=== PATIENT | female | born 1960 | race Caucasian/White ===

== ENCOUNTER 2019-06-15 12:24 | Outpatient (RCR) | payer OTHER, SELFPAY ==
[2019-06-05 14:31] LABS: Blood Urea Nitrogen 12 mg/dL (7-17); Carbon Dioxide 24 mmol/L (22-30); Chloride 102 mmol/L (98-107); Estimated Glomerular Filt Rate > 60; Glucose 106 mg/dL (65-105); Potassium 3.8 mmol/L (3.4-5.0); Sodium 139 mmol/L (137-145)
[2019-06-15 13:00] LABS: Blood Urea Nitrogen 14 mg/dL (7-17); Calcium 9.1 mg/dL (8.4-10.2); Carbon Dioxide 24 mmol/L (22-30); Chloride 103 mmol/L (98-107); Estimated Glomerular Filt Rate > 60; Glucose 103 mg/dL (65-105); Potassium 3.8 mmol/L (3.4-5.0); Sodium 139 mmol/L (137-145)
== END 2019-09-03 23:59 | disposition home or self-care (01) ==
LOC: ANHLAB 12:24
PROVIDERS: PCP Emergency Medicine
DX: I50.23 Acute on chronic systolic (congestive) heart failure (principal); Z98.890 Other specified postprocedural states; Z95.818 Presence of other cardiac implants and grafts
CPT/HCPCS: 36415; 80048

== ENCOUNTER 2020-01-02 01:00 | Inpatient (IN) | payer OTHER, SELFPAY ==
[2020-01-02] VITALS (26 sets, daily range): BP systolic 90–153; BP diastolic 45–107; PULSE 91–131; RESP 12–32; TEMP 35.9–37.1; O2SAT 9–99; BMI 33.5
--- NOTE | ~2020-01-02 | XR_ITS ---
EXAMINATION: XR chest 1V portable INDICATION: Shortness of breath and cough TECHNIQUE: Portable AP chest at 0126 hours COMPARISON: 09/05/2018 FINDINGS: A diffuse interstitial pattern is present. There is stable cardiomegaly. No pleural effusio n or pneumothorax is identified. There are surgical clips in the left axilla. IMPRESSION: 1. Cardiomegaly with pulmonary edema. Reviewed, dictated and finalized at location A.
--- NOTE | 2020-01-02 01:05 | ECG_ITS ---
Measurements Intervals [place] Rate: 136 P: 25 OH: 110 QRS: 61 QRSD: 123 T: 30 QT: 320 QTc: 483 Interpretive Statements SINUS OR ECTOPIC ATRIAL TACHYCARDIA WITH SHORT [place] INTERVAL RIGHT BUNDLE BRANCH BLOCK BASELINE ARTIFACT- I, II, III, AVR, AVL, AVF, V1-V2, V4-V6 ABNORMAL ECG Electronically Signed On 01-02-2020 7:05:07 CDT by Orlando Devi D.O.
[2020-01-02] MEDS: NITROGLYCERIN OINTMENT 1 INCH DOSE TRANSDERM (01:28)
[2020-01-02 01:37] LABS: Basophils Absolute Auto 0.1 K/mm3 (0.0-0.1); Basophils Percent Auto 0.7 % (0.2-1.2); Eosinophils Absolute Auto 0.1 K/mm3 (0-0.3); Eosinophils Percent Auto 0.7 % (0-4.4); Hemoglobin 12.8 g/dL (12.0-15.0); Immature Granulocyte Absolute 0.33 K/mm3 (0.00-0.031); Immature Granulocyte Percent A 2.4 % (0-0.5); Lymphocytes Absolute Auto 1.91 K/mm3 (0.9-3.2); Lymphocytes Percent Auto 13.9 % (18.3-44.2); Mean Corpuscular Hemoglobin 29.6 pg (26-34); Mean Corpuscular Volume 92.6 fl (80-100); Mean Platelet Volume 11.8 fl (7.4-10.4); Monocytes Absolute Auto 0.3 K/mm3 (0.1-0.6); Monocytes Percent Auto 2.3 % (2.6-8.5); Platelet Count Result 285 k/mm3 (150-375); Red Blood Count 4.32 M/mm3 (4.2-5.4); Red Cell Distribution Width 14.8 % (11.5-14.5); White Blood Count 13.7 K/mm3 (4.5-10.0)
[2020-01-02 02:07] LABS: INR 1.1; Prothrombin Time 13.9 Seconds (11.1-14.7)
[2020-01-02 02:08] LABS: Partial Thromboplastin Time 26.3 SECONDS (22.3-36.8)
[2020-01-02] MEDS: BUMETANIDE INJ 1 MG/4 ML VIAL IV PUSH ×3 (02:08→19:24)
[2020-01-02 02:15] LABS: Anion Gap 12 mmol/L (8-16); Blood Urea Nitrogen 18 mg/dL (7-17); Calcium 8.1 mg/dL (8.4-10.2); Carbon Dioxide 16 mmol/L (22-30); Chloride 111 mmol/L (98-107); Estimated CRCL calculation 85 ml/min; Estimated Glomerular Filt Rate 57; Glucose 323 mg/dL (65-105); Potassium 3.6 mmol/L (3.4-5.0); Sodium 139 mmol/L (137-145)
--- NOTE | 2020-01-02 02:23 | ED.SOB ---
HPI - SOB/Dyspnea General Chief Complaint: Shortness of Breath/Dyspnea Stated Complaint: SOB Time Seen by Provider: 01/02/20 01:04 History of Present Illness HPI Narrative: Patient is a 59-year-old female who presents the ER with sudden onset shortness of breath. Patient had just sat down to watch some police videos on YouTube when she began to have an anxious feeling and shortness of breath. Patient cannot get comfortable. She is more short of breath if she lay down flat. Patient has history of heart disease as well as mitral clipping. She sees Dr. Gillis at [facility] for her cardiac care. Family reports patient has been under stress recently as a family ember yesterday from COVID-19 and they are going to have to plan the . No change in diet. No increased swelling in lower extremities. Related Data Home Medications Medication Instructions Recorded Confirmed alprazolam 01/02/20 amitriptyline 01/02/20 atorvastatin 01/02/20 bupropion HCl mg PO 01/02/20 carvedilol 01/02/20 citalopram mg 01/02/20 digoxin 01/02/20 docusate sodium [DOK] 100 mg PO DAILY 01/02/20 01/02/20 furosemide 40 mg PO BID 01/02/20 01/02/20 gabapentin 01/02/20 lisinopril 01/02/20 mirtazapine 30 mg PO HS 01/02/20 01/02/20 potassium chloride 40 meq PO BID 01/02/20 01/02/20 torsemide 20 mg PO BID 01/02/20 01/02/20 Allergies Allergy/AdvReac Type Severity Reaction Status Date / Time spironolactone Allergy Rash Verified 01/02/20 01:40 Review of Systems Review of Systems: All systems reviewed & are unremarkable except as noted in HPI and below Constitutional: Constitutional: Denies chills, Denies fever(s) and Denies weakness ENT: Denies nasal congestion and Denies sore throat Cardiovascular: Cardiovascular: Reports chest pain, Reports rapid heart rate and Denies radiating jaw, neck or arm pain Respiratory: Respiratory: Denies chest congestion, Denies cough and Reports dyspnea Gastrointestinal: Gastrointestinal: Denies nausea and Denies vomiting [facility] Past Medical History Medical History (Updated 01/02/20 @ 05:43 by Kaden Rodriguez MD) Coronary artery disease Hypercholesterolemia Hypertension Surgical History Surgical History (Updated 01/02/20 @ 05:36 by Kaden Rodriguez MD) History of percutaneous coronary intervention S/P mitral valve clip implantation Family History Family History (Updated 01/02/20 @ 05:10 by Ana Maria Mccabe RN) Mother Cerebrovascular accident Father AICD (automatic cardioverter/defibrillator) present RADHA (obstructive sleep apnea) Chronic obstructive pulmonary disease Social History Social History Smoking packs per day: 0.5 Smoking cigarettes per day: 10.0 Years smoked: 22 Smoking pack-years: 11.00 Smoking status: Former smoker Tobacco type: cigarettes Second hand tobacco smoke exposure: No Smoking end date: 09/01/18 Alcohol intake: never Substance use: never Gender identity (if verbalized by the patient): Female Spiritual care concerns: No Exam Narrative: Exam Narrative: GENERAL: ill-appearing, well-nourished, and in moderate distress. HEAD: Normocephalic, atraumatic. ENT: Mucous membranes moist. CHEST: Moderate respiratory distress with coarse rales throughout.. HEART: Tachycardic and regular. Normal peripheral pulses. ABDOMEN: Soft, nontender, nondistended. EXTREMITIES: Normal range of motion. No edema. SKIN: Warm, dry, no rash. NEURO: Alert and oriented x3. PSYCH: Anxious Course Course Emergency Course: Feels markedly improved after BiPAP as well as Bumex and nitroglycerin paste. Nitropaste is been removed due to blood pressure lowering. Patient had brief episode of chest pain in the ER that was in the center of her chest that resolves when going from a laying to sitting position. Admit to hospitalist. Vital Signs Vital signs: Vital Signs Pulse Rate 131 H 01/02/20 01:22 Respiratory Rate 32 H 01/02/20 01:22 Pul
[2020-01-02 02:27] LABS: NT Pro B Type Natriuretic Pept 1540 PG/ML (5-100); Troponin I < 0.012 ng/mL (0.000-0.034)
--- NOTE | 2020-01-02 03:59 | PC.NURSE ---
report to karson
--- NOTE | 2020-01-02 05:06 | PC.NURSE ---
This patient, Alexandra Crawford, was admitted to IMU Room 214-01 at 0435 on 01/02/20. Patient/family oriented to hospital policies and general routines including ID bracelet, bed and alarms, visiting hours, pain management, procedures, bathroom and other care routines, personal items, smoking policy, room service/diet, and visiting hours. Valuables list has been completed. Information on how to activate the Rapid Response Team has been discussed. Patient/Family are encouraged to report perceived risks to care and to ask questions if they do not understand what they are told or what they should do.
--- NOTE | 2020-01-02 05:45 | PM.IMHP ---
H&P: HPI History of Present Illness Date/Time: 01/02/20 06:00 Chief complaint: Shortness of breath Narrative: Aleaxndra Crawford is a 59 year old female with a past medical history of cardiomyopathy and severe mitral valve regurgitation status post repair who presented to the ER due to shortness of breath. The patient had initially called EMS but EMS was unable to bring her to the ER due to her degree of anxiety. She was combative with EMS and climbed out of the ambulance numerous times. She was eventually brought to the ER by private vehicle.The patient arrived to the ER pale diaphoretic and unable to speak . She was on all fours. The patient reports that she has had increased lower extremity swelling for the last 2 or 3 weeks. She has noticed some mild increase in abdominal stent distension for a few weeks before that. She has noticed some intermittent short of breath with activity. Tonight she had worsening shortness of breath when she tried to lay down and go to sleep. She thought that it may be due to extra stress as her uncle recently of [place] and she wanted to arrange time to go to the . She did not have any exposure to her uncle or relatives that were exposed her uncle in recent weeks. She denies having any cough or congestion. she has not been having any fevers or chills. She has noticed that she has gained a few lb over the last couple of weeks. After she had arrived to the ER the patient began having left-sided chest pain that did not radiate. It was associated with increased diaphoresis and nausea. She reports that she has been trying to eat a low sodium diet. She waspatient was initially diagnosed with cardiomyopathy with the EF of 25% and severe mitral valve regurgitation back in August of 2018. she had a cardiac catheterization at that time performed by Dr. Powell. She was referred to [facility] and had valvular repair March 2019. She reported that initially she was on Lasix but the Lasix did not work for her. She has a better response to diuretic therapy with torosimide. she had also initially been treated with spironolactone but she developed a rash with spironolactone in this was discontinued. The patient does have a history of excessive daytime sleepiness. her fiance is told her that she stops breathing at night and will gasp for air. She has never had a sleep study. Review of Systems Review of Systems: Narrative: 12 systems were reviewed with pertinent positives and negatives per HPI. Except as documented in the HPI, all other systems were reviewed and are negative. [facility] Past Medical History Medical History (Updated 01/02/20 @ 08:13 by Marian Delatorre DO) Cancer of left breast 2013treated with radiation therapy Hypercholesterolemia Hypertension Kidney stones 2015 Nonischemic cardiomyopathy noted on trans esophageal echocardiogram August 2018 with severe mitral valve regurgitation EF of 25% Surgical History Surgical History (Updated 01/02/20 @ 08:06 by Marian Delatorre DO) History of cardiac catheterization with no significant coronary artery disease noted August 2018 S/P mitral valve clip implantation Status post left breast lumpectomy Family History Family History Mother Cerebrovascular accident Father AICD (automatic cardioverter/defibrillator) present RADHA (obstructive sleep apnea) Chronic obstructive pulmonary disease Social History Social History (Updated 01/02/20 @ 08:08 by Marian Delatorre DO) Social History: The patient lives with her fiance and her 24-year-old daughter who has Down syndrome. 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 She used to smoke a 3rd of a pack of cigarettes per day but quit smoking in August of 2018. She denies any alcohol use or illicit substance use. Smoking packs per day: 0.5 Smoking ciga
[2020-01-02 06:31] LABS: Troponin I 0.036 ng/mL (0.000-0.034)
[2020-01-02 08:16] LABS: Troponin I 0.033 ng/mL (0.000-0.034)
[2020-01-02] MEDS: ATORVASTATIN 40 MG TABLET PO (09:48)
[2020-01-02] MEDS: carvediloL 25 MG TABLET PO (09:48)
[2020-01-02] MEDS: buPROPion HCL XL (24 HR) 150 MG TABCR PO (09:48)
[2020-01-02] MEDS: GABAPENTIN 300 MG CAPSULE PO (09:49)
[2020-01-02] MEDS: DOCUSATE SODIUM 100 MG CAPSULE PO (09:49)
[2020-01-02] MEDS: DIGOXIN TAB 125 MCG TABLET PO (09:49)
[2020-01-02] MEDS: POTASSIUM CHLORIDE 10 MEQ TABLET.ER 40 MEQ PO ×2 (09:50→19:23)
[2020-01-02] MEDS: ENOXAPARIN 40 MG/0.4 ML SYRINGE SUB-Q (09:50)
--- NOTE | 2020-01-02 09:53 | PM.IMPN ---
Progress Note: A&P Assessment and Plan (1) Acute exacerbation of CHF (congestive heart failure): Qualifiers: Heart failure type: systolic Qualified Code(s): I50.23 - Acute on chronic systolic (congestive) heart failure Code(s): I50.9 - Heart failure, unspecified Status: Acute Assessment and Plan: Chest x-ray showed cardiomegaly with pulmonary edema. BNP was 1500. She was in respiratory distress on admission. she has been started on Bumex IV. Monitor renal function and urine output. Repeat echocardiogram has been ordered. (2) Acute respiratory failure: Qualifiers: Respiratory failure complication: hypoxia Qualified Code(s): J96.01 - Acute respiratory failure with hypoxia Code(s): J96.00 - Acute respiratory failure, unspecified whether with hypoxia or hypercapnia Status: Acute Assessment and Plan: Acute hypoxic respiratory failure related to acute CHF exacerbation. Patient was combative to EMS resulting in EMS transfer being canceled. Patient came by private car and was in tripod position on presentation. patient more comfortable on BiPAP at this time. Wean to nasal cannula today as tolerated. (3) Chest pain: Qualifiers: Chest pain type: unspecified Qualified Code(s): R07.9 - Chest pain, unspecified Code(s): R07.9 - Chest pain, unspecified Status: Acute Assessment and Plan: EKG showing no acute changes. Troponin slightly elevated at 0.036 but felt this is related to the CHF and not ischemia. Patient had a left heart catheterization August 2018 which showed no significant coronary disease. Cardiology consulted. (4) Daytime somnolence: Code(s): R40.0 - Somnolence Status: Acute Assessment and Plan: Patient has symptoms of sleep apnea. Plan for apnea link when patient is well. (5) Hyperglycemia: Code(s): R73.9 - Hyperglycemia, unspecified Status: Acute Assessment and Plan: Glucose on admission was 323. She has no history of diabetes. Will check hemoglobin A1c and a TSH. AccuCheks covering with sliding scale. Hypoglycemia protocol available as needed. (6) Hypertension: Code(s): I10 - Essential (primary) hypertension Status: Acute Assessment and Plan: Patient has a history of hypertension. Blood pressure elevated on admission due to her respiratory failure. Blood pressure since that time has become soft. Monitor closely on diuretics. Will place parameters on her medications. (7) Mitral regurgitation: Code(s): I34.0 - Nonrheumatic mitral (valve) insufficiency Status: Acute Assessment and Plan: Patient had severe mitral valve regurgitation requiring mitral valve clip. No echocardiogram since the surgery. Echocardiogram ordered today. (8) DVT prophylaxis: Code(s): Z29.9 - Encounter for prophylactic measures, unspecified Status: Acute Assessment and Plan: Lovenox Subjective Date/time seen: 01/02/20 09:53 Interval history: 59yo female with hx of CMP and severe MR status post valve repair here for respiratory distress. Patient was initially diagnosed with cardiomyopathy with the EF of 25% and severe mitral valve regurgitation back in August of 2018. She had a LHC at that time and then referred for valve repair. She is feeling better this morning. She adheres to a low-sodium diet. She states her shortness of breath began 1 day ago. Chest pain began also over the past day. She also developed nausea, vomiting and diarrhea. She has noted increasing pedal edema over the past week. Also noted abdominal distention over the past week as well. She does not check daily weights. She does not have diabetes. She has not been on steroids. No cough. Exam Narrative: Exam Narrative: AF 97.0 90/60 93 18 99% BiPAP Gen - Well-nourished well-developed female lying semi recumbent in bed with BiPAP i
[2020-01-02 11:05] LABS: Glucose Point of Care 155 (65-105)
[2020-01-02] MEDS: ACETAMINOPHEN 325 MG TABLET 650 MG PO (11:05)
--- NOTE | 2020-01-02 12:32 | PM.CNCAR ---
Assessment and Plan Assessment and plan (1) Acute exacerbation of CHF (congestive heart failure): Qualifiers: Heart failure type: systolic Qualified Code(s): I50.23 - Acute on chronic systolic (congestive) heart failure Code(s): I50.9 - Heart failure, unspecified Status: Acute Assessment and Plan: 59 y/o female with h/o Non ischemic cardiomyopathy diagnosed in August 2018 ([facility] with no significant CAD) and severe mitral valve regurgitation status post Laura-Clip at [facility] in Mar 2019 who presented with shortness of breath and acute resp failure She required BiPAP initially. now down to oxygen via nasal cannula BNP 1500. Chest Xray with marked pulmonary edema She is diuresing well with Bumex. Will continue current dose of 1 mg BID Her BP is borderline low 90s systolic. Will d/c Coreg and start low dose Metoprolol 25 daily. Will continue low dose Lisinopril as at home 5 mg daily Will repeat 2D echo to reassess her LV systolic function and assess valvular disease (2) Nonischemic cardiomyopathy: Code(s): I42.8 - Other cardiomyopathies Status: Acute Assessment and Plan: Likely due to underlying valvular disease. S/p Clip in Mar 2019. Repeat 2D echocardiogram (3) Acute respiratory failure: Qualifiers: Respiratory failure complication: hypoxia Qualified Code(s): J96.01 - Acute respiratory failure with hypoxia Code(s): J96.00 - Acute respiratory failure, unspecified whether with hypoxia or hypercapnia Status: Acute Assessment and Plan: required Bipap. better now. COntinue Bumex History of Present Illness History of Present Illness Consult date/time: 01/02/20 12:32 59 y/o female with h/o cardiomyopathy diagnosed in August 2018 ([facility] with no significant disease consistent with non ischemic cardiomyopathy) and severe mitral valve regurgitation status post Laura-Clip at [facility] in Mar 2019 who presented to the ER due to shortness of breath. She reports that she has been short of breath even since her Laura Clip procedure. She was initially on Lasix and was switched to Torsemide few months ago still with ongoing dyspnea. She repots worsening dyspnea for few weeks as well as lower ext edema and abdominal distention. Yesterday when she tried to lay down to sleep she developed acute onset of dyspnea with near feeling. It appears she had panic attack and climbed out of ambulance multiple times and eventually family brought her to hospital. She was placed on BiPAP and received IV lasix. She feels better now though not quite back to normal. She had episode of chest pain in ER. Had Nitro paste placed but that was taken off due borderline low BP. Most recent BP 94/60 Trop 0.01, 0.03,0.03 Chest X ray shows pulmonary edema EKG shows sinus tachycardia with artifact. tele monitor now shows sinus tachy at HR 100 she quit smoking in August 2018 . Reason For Visit: Shortness of breath Review of Systems Review of Systems: All systems reviewed & are unremarkable except as noted in HPI and below PMFSH Past Medical History Medical History (Updated 01/02/20 @ 12:49 by Shauna Combs MD) Cancer of left breast 2013treated with radiation therapy Hypercholesterolemia Hypertension Kidney stones 2015 Nonischemic cardiomyopathy noted on trans esophageal echocardiogram August 2018 with severe mitral valve regurgitation EF of 25% Surgical History Surgical History (Updated 01/02/20 @ 08:06 by Marian Delatorre DO) History of cardiac catheterization with no significant coronary artery disease noted August 2018 S/P mitral valve clip implantation Status post left breast lumpectomy Family History Family History Mother Cerebrovascular accident Father AICD (automatic cardioverter/defibrillator) present RADHA (obstructive sleep apnea) Chronic obstructive pulmonary disease
[2020-01-02 19:20] LABS: Glucose Point of Care 107 (65-105)
[2020-01-02] MEDS: AMITRIPTYLINE HCL 25 MG TABLET PO (20:00)
[2020-01-02] MEDS: lisinopriL 5 MG TABLET PO (20:00)
[2020-01-02] MEDS: CITALOPRAM HYDROBROMIDE 20 MG TABLET 40 MG PO (20:00)
[2020-01-02] MEDS: MIRTAZAPINE 30 MG TABLET PO (20:00)
[2020-01-03] VITALS (20 sets, daily range): BP systolic 95–122; BP diastolic 61–80; PULSE 79–103; RESP 16–20; TEMP 35.8–36.6; O2SAT 97–100
--- NOTE | 2020-01-03 | ECHO_ITS ---
Patient Info Name: Alexandra Crawford Age: 59 years : 1960 Gender: Female Ht: 63 in Wt: 188 lbs BSA: 1.98 m2 HR: 90 bpm BP: 108 / 75 mmHg Technical Quality: Good Exam Date: 01/03/2020 10:03 AM Exam Location: [facility] Pulmonary Patient Status: Inpatient Admit Date: 01/03/2020 Staff Ordering Physician: Marian Delatorre DO Chief Radiologic Technologist: Lynda Jalloh RDCS Attending Provider: Marian Delatorre DO Referring Physician: Nandini STRONG; Exam Type: CA echo doppler color flow Study Info Indications I50.9 - Heart failure, unspecified Complete two-dimensional, color flow and Doppler transthoracic echocardiogram is performed. Summary 1. Left ventricular systolic function is severely reduced, estimated at 15-20%. 2. There is moderate to severe mitral valve regurgitation. 3. There is mild to moderate mitral valve stenosis. 4. There is mild tricuspid valve regurgitation. 5. Moderate pulmonary hypertension, estimated pulmonary arterial systolic pressure is 47 mmHg. Left Ventricle Left ventricular systolic function is severely reduced, estimated at 15-20%. There is no increased left ventricular wall thickness. Left ventricular septal wall motion is normal. The left ventricular diastolic function is normal. Right Ventricle Right ventricular chamber dimension is normal. Right ventricular systolic function is normal. Left Atria Left atrial chamber dimension is mildly enlarged. Right Atria Right atrial chamber dimension is normal. Aortic Valve The aortic valve is trileaflet. There is no aortic valve sclerosis. There is no aortic valve stenosis. There is no aortic valve regurgitation. Pulmonic Valve The pulmonic valve is normal. There is no pulmonic valve stenosis. There is no pulmonic regurgitation. Mitral Valve There is mild to moderate mitral valve stenosis. There is moderate to severe mitral valve regurgitation. Mitral valve has significant thickening and restricted motion, with mitral valve clip. Tricuspid Valve The tricuspid valve leaflets are normal. There is no significant tricuspid valve stenosis. There is mild tricuspid valve regurgitation. Moderate pulmonary hypertension, estimated pulmonary arterial systolic pressure is 47 mmHg. Pericardium/Pleural The pericardium appears normal. There is no pericardial effusion. Inferior Vena Cava Normal inferior vena cava with >50% collapse upon inspiration consistent with normal right atrial pressure, 10 mmHg. Aorta The aortic root size at the sinus of Valsalva is normal. The prox ascending aorta size is normal. Left Ventricular Outflow Tract Name Value Normal LVOT 2D LVOT Diameter 2.0 cm LVOT Doppler LVOT Peak Gradient 5 mmHg LVOT Mean Gradient 2 mmHg LVOT VTI 15 cm LVOT VTI/AV VTI Ratio 0.8 LVOT Stroke Volume 47 ml LVOT CO 4.7 l/min LVOT CI 2.3 l/min/m2 Pulmonic Valve
[2020-01-03 05:49] LABS: Hematocrit 39.1 % (37.0-47.0); Hemoglobin 12.6 g/dL (12.0-15.0); Mean Corpuscular HGB Conc 32.2 g/dl (32-36); Mean Corpuscular Hemoglobin 29.9 pg (26-34); Mean Corpuscular Volume 92.7 fl (80-100); Mean Platelet Volume 12.4 fl (7.4-10.4); Platelet Count Result 248 k/mm3 (150-375); Red Blood Count 4.22 M/mm3 (4.2-5.4); White Blood Count 7.2 K/mm3 (4.5-10.0)
[2020-01-03 06:05] LABS: Alanine Aminotransferase 32 U/L (4-35); Albumin Level 4.1 g/dL (3.5-5.1); Alkaline Phosphatase 97 U/L (38-126); Anion Gap 6 mmol/L (8-16); Aspartate Amino Transferase 28 U/L (14-36); Bilirubin,Total 0.4 mg/dL (0.2-1.3); Blood Urea Nitrogen 16 mg/dL (7-17); Calcium 9.2 mg/dL (8.4-10.2); Carbon Dioxide 27 mmol/L (22-30); Chloride 108 mmol/L (98-107); Estimated CRCL calculation 61 ml/min; Estimated Glomerular Filt Rate > 60; Glucose 105 mg/dL (65-105); Hemoglobin A1C 5.5 % (<5.7); Magnesium 2.1 mg/dL (1.6-2.3); Potassium 4.1 mmol/L (3.4-5.0); Sodium 141 mmol/L (137-145)
[2020-01-03 07:38] LABS: Glucose Point of Care 96 (65-105)
[2020-01-03 07:58] LABS: Free T4 Free Thyroxine Reflex 0.72 ng/dL (0.78-2.19)
[2020-01-03 08:50] LABS: Digoxin < 0.4 ng/mL (0.8-2.0)
[2020-01-03] MEDS: ATORVASTATIN 40 MG TABLET PO (10:58)
[2020-01-03] MEDS: DIGOXIN TAB 125 MCG TABLET PO (10:58)
[2020-01-03] MEDS: GABAPENTIN 300 MG CAPSULE PO (10:58)
[2020-01-03] MEDS: DOCUSATE SODIUM 100 MG CAPSULE PO (10:58)
[2020-01-03] MEDS: METOPROLOL SUCCINATE EXT REL 25 MG TABCR PO (10:59)
[2020-01-03] MEDS: buPROPion HCL XL (24 HR) 150 MG TABCR PO (10:59)
[2020-01-03] MEDS: ENOXAPARIN 40 MG/0.4 ML SYRINGE SUB-Q (11:00)
[2020-01-03] MEDS: POTASSIUM CHLORIDE 10 MEQ TABLET.ER 40 MEQ PO ×2 (11:00→17:23)
[2020-01-03] MEDS: BUMETANIDE INJ 1 MG/4 ML VIAL IV PUSH ×2 (11:01→17:22)
[2020-01-03 11:53] LABS: Glucose Point of Care 98 (65-105)
[2020-01-03] MEDS: MORPHINE SULFATE 4 MG/ML INJ IV PUSH (13:13)
[2020-01-03] MEDS: ONDANSETRON INJ 4 MG/2 ML VIAL IV PUSH (13:18)
--- NOTE | 2020-01-03 13:21 | PC.NURSE ---
Pt experienced chest pain, notified Dr Patrick. Gave morphine with Zophran. Dr. Patrick examined patient. Patient chest pain subsided after morphine.
--- NOTE | 2020-01-03 13:29 | PM.PNCARD ---
Progress Note: A&P Assessment and Plan (1) Acute exacerbation of CHF (congestive heart failure): Qualifiers: Heart failure type: systolic Qualified Code(s): I50.23 - Acute on chronic systolic (congestive) heart failure Code(s): I50.9 - Heart failure, unspecified Status: Acute Assessment and Plan: 59 y/o female with h/o Non ischemic cardiomyopathy diagnosed in August 2018 ([facility] with no significant CAD) and severe mitral valve regurgitation status post Laura-Clip at [facility] in Mar 2019 who presented with shortness of breath and acute resp failure She required BiPAP initially. now down to oxygen via nasal cannula BNP 1500. Chest Xray with marked pulmonary edema She is diuresing well with Bumex. Will continue current dose of 1 mg BID Her BP is borderline low 90s systolic. Will d/c Coreg and start low dose Metoprolol 25 daily. Will continue low dose Lisinopril as at home 5 mg daily echocardiogram still showed severe left ventricular systolic dysfunction (2) Nonischemic cardiomyopathy: Code(s): I42.8 - Other cardiomyopathies Status: Acute Assessment and Plan: Likely due to underlying valvular disease. S/p Clip in Mar 2019. (3) Acute respiratory failure: Qualifiers: Respiratory failure complication: hypoxia Qualified Code(s): J96.01 - Acute respiratory failure with hypoxia Code(s): J96.00 - Acute respiratory failure, unspecified whether with hypoxia or hypercapnia Status: Acute Assessment and Plan: required Bipap. better now. COntinue Bumex (4) Paroxysmal atrial fibrillation: Code(s): I48.0 - Paroxysmal atrial fibrillation Status: Acute Assessment and Plan: she had few episodes of symptomatic atrial fibrillation with rapid ventricular response, will add amiodarone, continue with metoprolol and digoxin, will monitor her rhythm closely. Will consider anticoagulation with Coumadin if she has significant recurrence of that. Subjective Date/time seen: 01/03/20 13:29 she feels slightly better as far as shortness of breath, however she had episode of chest pain while I was at the bedside and subsequent after, during that time she went to atrial fibrillation with rapid ventricular response. Orthopnea is better, and leg swelling is better Exam Narrative: Exam Narrative: General: Appears somewhat anxious but in no distress ormocephalic atraumatic, no JVD, , pupils are equal and react Respiratory: crackles bilaterally, mild conversational dyspnea, Cardiovascular: mildly tachycardic, positive murmur, no JVD, trace lower ext edema Gastrointestinal: distended, nontender, positive bowel sounds, soft Skin: cool to touch, mildly diaphoretic, mild pallor Musculoskeletal:trace edema, no clubbing, no cyanosis Neurological: no gross deficits Psychiatric: appropriate mood and affect, pleasant and cooperative : deferred Hematologic/lymphatic: no petechiae, no bruising Objective Data Vital Signs Vital Signs: Vital Signs - 24 hr 01/02/20 14:00 01/02/20 16:00 01/02/20 18:00 Temperature 35.9 C L Pulse Rate 97 92 93 Respiratory Rate 12 Blood Pressure 94/45 L Pulse Oximetry 98 01/02/20 20:00 01/02/20 20:02 01/02/20 22:00 Temperature Pulse Rate 99 97 Respiratory Rate Blood Pressure Pulse Oximetry 98 01/02/20 23:53 01/03/20 00:00 01/03/20 02:00 Temperature 36.5 C Pulse Rate 104 H 89 97 Respiratory Rate 18 Blood Pressure 108/73 Pulse Oximetry 97 01/03/20 04:00 01/03/20 06:00 01/03/20 07:42 Temperature 36.5 C 35.8 C L Pulse Rate 98 90 103 H Respiratory Rate 18 16 Blood Pressure 108/75 98/63 L Pulse Oximetry 99 99 01/03/20 10:58 01/03/20 10:59 01/03/20 11:57 Temperature 35.9 C L Pulse Rate 100 103 H 79 Respiratory Rate 16 Blood Pressure 122/75 Pulse Oximetry 98 Intake/Output Intake/Output: Intake & Output 12/31/19 01/01/20 01/02/20 01/03/20
[2020-01-03 16:54] LABS: Glucose Point of Care 105 (65-105)
[2020-01-03] MEDS: AMIODARONE HCL 200 MG TABLET 400 MG PO (17:24)
--- NOTE | 2020-01-03 20:43 | PM.IMPN ---
Progress Note: A&P Assessment and Plan (1) Acute exacerbation of CHF (congestive heart failure): Qualifiers: Heart failure type: systolic Qualified Code(s): I50.23 - Acute on chronic systolic (congestive) heart failure Code(s): I50.9 - Heart failure, unspecified Status: Acute Assessment and Plan: Chest x-ray showed cardiomegaly with pulmonary edema. BNP was 1500. She was in respiratory distress on admission. She has been started on Bumex IV. Monitor renal function and urine output. Repeat echocardiogram has been ordered. (2) Acute respiratory failure: Qualifiers: Respiratory failure complication: hypoxia Qualified Code(s): J96.01 - Acute respiratory failure with hypoxia Code(s): J96.00 - Acute respiratory failure, unspecified whether with hypoxia or hypercapnia Status: Acute Assessment and Plan: Acute hypoxic respiratory failure related to acute CHF exacerbation. Patient was combative to EMS resulting in EMS transfer being canceled. Patient came by private car and was in tripod position on presentation. Patient treated with BiPAP and became much more comfortable. After diuresis, she was able to be weaned to nasal cannula. (3) Paroxysmal atrial fibrillation: Code(s): I48.0 - Paroxysmal atrial fibrillation Status: Acute Assessment and Plan: Patient having AFib with RVR. Cardiology aware and Amiodarone added. Continue with metoprolol and digoxin. HR stable. Consider anticoagulation. (4) Chest pain: Qualifiers: Chest pain type: unspecified Qualified Code(s): R07.9 - Chest pain, unspecified Code(s): R07.9 - Chest pain, unspecified Status: Acute Assessment and Plan: EKG showing no acute changes. Troponin slightly elevated at 0.036 but felt this is related to the CHF and not ischemia. Patient had a left heart catheterization August 2018 which showed no significant coronary disease. Cardiology following. (5) Nonischemic cardiomyopathy: Code(s): I42.8 - Other cardiomyopathies Status: Acute Assessment and Plan: As above. (6) Daytime somnolence: Code(s): R40.0 - Somnolence Status: Acute Assessment and Plan: Patient has symptoms of sleep apnea. Plan for apnea link when patient is well. (7) Hyperglycemia: Code(s): R73.9 - Hyperglycemia, unspecified Status: Acute Assessment and Plan: Glucose on admission was 323. She has no history of diabetes. A1c 5.5. TSH 5.7. Glucose well controlled. Continue AccuCheks covering with sliding scale. Hypoglycemia protocol available as needed. (8) Hypertension: Code(s): I10 - Essential (primary) hypertension Status: Acute Assessment and Plan: Patient has a history of hypertension. Blood pressure elevated on admission due to her respiratory failure. Blood pressure since that time has become soft. Monitor closely on diuretics. (9) Mitral regurgitation: Code(s): I34.0 - Nonrheumatic mitral (valve) insufficiency Status: Acute Assessment and Plan: Patient had severe mitral valve regurgitation requiring mitral valve clip. Echo shoiwng EF 15-20% and moderate to severe MR. Cardiology here has already contacted [facility] and she has been accepted in transfer. (10) DVT prophylaxis: Code(s): Z29.9 - Encounter for prophylactic measures, unspecified Status: Acute Assessment and Plan: Lovenox Subjective Date/time seen: 01/03/20 20:43 Interval history: 59yo female with hx of CMP and severe MR status post valve repair here for respiratory distress. Patient was initially diagnosed with cardiomyopathy with the EF of 25% and severe mitral valve regurgitation back in August of 2018. She had a LHC at that time and then referred for valve repair which she had done in March. SOB better but she still feels 'a little congested'. No n/v
[2020-01-03 20:48] LABS: Glucose Point of Care 122 (65-105)
[2020-01-03] MEDS: MIRTAZAPINE 30 MG TABLET PO (20:48)
[2020-01-03] MEDS: CITALOPRAM HYDROBROMIDE 20 MG TABLET 40 MG PO (20:48)
[2020-01-03] MEDS: AMITRIPTYLINE HCL 25 MG TABLET PO (20:51)
[2020-01-03] MEDS: lisinopriL 5 MG TABLET PO (20:51)
[2020-01-04] VITALS (24 sets, daily range): BP systolic 82–117; BP diastolic 52–100; PULSE 66–98; RESP 12–20; TEMP 35.8–36.6; O2SAT 94–99
[2020-01-04 08:40] LABS: Glucose Point of Care 112 (65-105)
[2020-01-04] MEDS: ATORVASTATIN 40 MG TABLET PO (08:53)
[2020-01-04] MEDS: AMIODARONE HCL 200 MG TABLET 400 MG PO ×2 (08:53→17:10)
[2020-01-04] MEDS: DIGOXIN TAB 125 MCG TABLET PO (08:54)
[2020-01-04] MEDS: DOCUSATE SODIUM 100 MG CAPSULE PO (08:54)
[2020-01-04] MEDS: buPROPion HCL XL (24 HR) 150 MG TABCR PO (08:54)
[2020-01-04] MEDS: POTASSIUM CHLORIDE 10 MEQ TABLET.ER 40 MEQ PO ×2 (08:55→17:09)
[2020-01-04] MEDS: GABAPENTIN 300 MG CAPSULE PO (08:55)
[2020-01-04] MEDS: ENOXAPARIN 40 MG/0.4 ML SYRINGE SUB-Q (08:55)
[2020-01-04] MEDS: BUMETANIDE INJ 1 MG/4 ML VIAL IV PUSH ×2 (08:56→17:10)
[2020-01-04] MEDS: METOPROLOL SUCCINATE EXT REL 25 MG TABCR PO (08:57)
[2020-01-04] MEDS: ALPRAZolam 0.25 MG TABLET PO ×2 (12:12→20:37)
[2020-01-04 12:13] LABS: Glucose Point of Care 88 (65-105)
[2020-01-04 12:58] LABS: Albumin Level 4.8 g/dL (3.5-5.1); Anion Gap 8 mmol/L (8-16); Blood Urea Nitrogen 18 mg/dL (7-17); Calcium 9.6 mg/dL (8.4-10.2); Carbon Dioxide 29 mmol/L (22-30); Chloride 100 mmol/L (98-107); Estimated CRCL calculation 55 ml/min; Estimated Glomerular Filt Rate 57; Glucose 95 mg/dL (65-105); Phosphorus 4.6 mg/dL (2.5-4.5); Potassium 4.6 mmol/L (3.4-5.0); Sodium 137 mmol/L (137-145)
--- NOTE | 2020-01-04 14:04 | PM.PNCARD ---
Progress Note: A&P Assessment and Plan (1) Acute exacerbation of CHF (congestive heart failure): Qualifiers: Heart failure type: systolic Qualified Code(s): I50.23 - Acute on chronic systolic (congestive) heart failure Code(s): I50.9 - Heart failure, unspecified Status: Acute Assessment and Plan: 59 y/o female with h/o Non ischemic cardiomyopathy diagnosed in August 2018 ([facility] with no significant CAD) and severe mitral valve regurgitation status post Laura-Clip at [facility] in Mar 2019 who presented with shortness of breath and acute resp failure She required BiPAP initially. now down to oxygen via nasal cannula BNP 1500. Chest Xray with marked pulmonary edema 2D echo showed moderate to severe MR as well as mild to mod increased in inflow gradient Continue Bumex. Her LV systolic function remains severely reduced. Continue Metoprolol (started this admission instead for Coreg due to low BP). Continue lisinopril. Had run of A fib with RVR yesterday. Continue Amiodarone. Also on Digoxin. Plan for transfer to [facility]. She will likely need WOOD and probably CT surgery eval (2) Nonischemic cardiomyopathy: Code(s): I42.8 - Other cardiomyopathies Status: Acute Assessment and Plan: Likely due to underlying valvular disease. S/p Clip in Mar 2019.Now still with moderate to severe MR. (3) Acute respiratory failure: Qualifiers: Respiratory failure complication: hypoxia Qualified Code(s): J96.01 - Acute respiratory failure with hypoxia Code(s): J96.00 - Acute respiratory failure, unspecified whether with hypoxia or hypercapnia Status: Acute Assessment and Plan: required Bipap. better now. COntinue Bumex (4) Paroxysmal atrial fibrillation: Code(s): I48.0 - Paroxysmal atrial fibrillation Status: Acute Assessment and Plan: she had few episodes of symptomatic atrial fibrillation with rapid ventricular response. Continue amiodarone,Dig, and metoprolol Will consider anticoagulation but will hold off starting now incase she needs to undergo any procedure for her mitral valve . Subjective Date/time seen: 01/04/20 14:04 She feels somewhat better. Not back to normal Review of Systems Review of Systems: All systems reviewed & are unremarkable except as noted in HPI and below Exam Narrative: Exam Narrative: General: Appears somewhat anxious but in no distress ormocephalic atraumatic, no JVD, , pupils are equal and react Respiratory: crackles bilaterally, mild conversational dyspnea, Cardiovascular: mildly tachycardic, positive murmur, no JVD, trace lower ext edema Gastrointestinal: distended, nontender, positive bowel sounds, soft Skin: cool to touch, mildly diaphoretic, mild pallor Musculoskeletal:trace edema, no clubbing, no cyanosis Neurological: no gross deficits Psychiatric: appropriate mood and affect, pleasant and cooperative : deferred Hematologic/lymphatic: no petechiae, no bruising Objective Data Vital Signs Vital Signs: Vital Signs - 24 hr 01/03/20 16:00 01/03/20 17:24 01/03/20 18:00 Temperature 35.8 C L Pulse Rate 88 96 97 Respiratory Rate 16 Blood Pressure 95/70 L Pulse Oximetry 97 01/03/20 19:58 01/03/20 20:00 01/03/20 21:22 Temperature 36.6 C Pulse Rate 99 94 94 Respiratory Rate 20 Blood Pressure 117/80 Pulse Oximetry 100 98 01/03/20 22:00 01/03/20 23:33 01/04/20 00:00 Temperature 36.4 C L Pulse Rate 97 80 87 Respiratory Rate 20 Blood Pressure 101/61 Pulse Oximetry 97 01/04/20 02:00 01/04/20 04:00 01/04/20 06:00 Temperature 36.2 C L Pulse Rate 83 87 86 Respiratory Rate 18 Blood Pressure 82/58 L Pulse Oximetry 96 01/04/20 07:08 01/04/20 08:46 01/04/20 08:53 Temperature 36.6 C Pulse Rate 87 85 72 Respiratory Rate 20 Blood Pressure 114/63 Pulse Oximetry 99 99 01/04/20 08:54 01/04/20 08:57 01/04/20 09:02 Temperatur
--- NOTE | 2020-01-04 15:52 | PM.IMPN ---
Progress Note: A&P Assessment and Plan (1) Acute exacerbation of CHF (congestive heart failure): Qualifiers: Heart failure type: systolic Qualified Code(s): I50.23 - Acute on chronic systolic (congestive) heart failure Code(s): I50.9 - Heart failure, unspecified Status: Acute Assessment and Plan: Chest x-ray showed cardiomegaly with pulmonary edema. BNP was 1500. She was in respiratory distress on admission. she has been started on Bumex IV. Monitor renal function and urine output. Repeat echocardiogram EF 15%, thought primarily secondary to mitral valve resume beta bertha and melissa as bp will allow (2) Acute respiratory failure: Qualifiers: Respiratory failure complication: hypoxia Qualified Code(s): J96.01 - Acute respiratory failure with hypoxia Code(s): J96.00 - Acute respiratory failure, unspecified whether with hypoxia or hypercapnia Status: Acute Assessment and Plan: Acute hypoxic respiratory failure related to acute CHF exacerbation. Patient came by private car and was in tripod position on presentation. patient comfortable on NC at this time. weaned from bipap 01/02. (3) Chest pain: Qualifiers: Chest pain type: unspecified Qualified Code(s): R07.9 - Chest pain, unspecified Code(s): R07.9 - Chest pain, unspecified Status: Acute Assessment and Plan: EKG showing no acute changes. Troponin slightly elevated at 0.036 but felt this is related to the CHF and not ischemia. Patient had a left heart catheterization August 2018 which showed no significant coronary disease. (4) Daytime somnolence: Code(s): R40.0 - Somnolence Status: Acute Assessment and Plan: Patient has symptoms of sleep apnea. Plan for apnea link when patient is well. (5) Hyperglycemia: Code(s): R73.9 - Hyperglycemia, unspecified Status: Acute Assessment and Plan: Glucose on admission was 323. She has no history of diabetes. FBS 95 today and A1c 5.5 (6) Hypertension: Code(s): I10 - Essential (primary) hypertension Status: Acute Assessment and Plan: Patient has a history of hypertension. Blood pressure elevated on admission due to her respiratory failure. Blood pressure since that time has become soft. Monitor closely on diuretics. Will place parameters on her medications. (7) Mitral regurgitation: Code(s): I34.0 - Nonrheumatic mitral (valve) insufficiency Status: Acute Assessment and Plan: Patient had severe mitral valve regurgitation requiring mitral valve clip. No echocardiogram since the surgery. Echocardiogram now showing ND so may need surgical intervention. Contacted [facility] and they will take patient in transfer (8) DVT prophylaxis: Code(s): Z29.9 - Encounter for prophylactic measures, unspecified Status: Acute Assessment and Plan: Lovenox Subjective Date/time seen: 01/04/20 15:52 Interval history: Date of visit 01/03 59yo female with hx of CMP and severe MR status post valve repair here for respiratory distress. Patient was initially diagnosed with cardiomyopathy with the EF of 25% and severe mitral valve regurgitation back in August of 2018. She had a LHC at that time and then referred for valve repair which she had done in March. SOB better but she still feels 'a little congested'. No n/v. No CP. Eating okay. . Exam Narrative: Exam Narrative: AF 116/96 84 20 99% 1L Gen - NARD Chest - CTA bilaterally, nml RR distant BS CV - RRR S1/S2 hear no murmer Abd - soft. NT/ND, +BS Ext - No pedal edema Psych - Nml mood and affect Objective Data Vital Signs Vital Signs: Vital Signs - 24 hr 01/03/20 16:00 01/03/20 17:24 01/03/20 18:00 Temperature 35.8 C L Pulse Rate 88 96 97 Respiratory Rate 16 Blood Pressure 95/70 L Pulse Oximetry 97 01/03/20 19:58 01/03/20 20:00 08
[2020-01-04 16:50] LABS: Glucose Point of Care 104 (65-105)
[2020-01-04] MEDS: AMITRIPTYLINE HCL 25 MG TABLET PO (20:27)
[2020-01-04] MEDS: MIRTAZAPINE 30 MG TABLET PO (20:27)
[2020-01-04] MEDS: lisinopriL 5 MG TABLET PO (20:27)
[2020-01-04] MEDS: CITALOPRAM HYDROBROMIDE 20 MG TABLET 40 MG PO (20:27)
[2020-01-04 20:38] LABS: Glucose Point of Care 105 (65-105)
[2020-01-05] VITALS (9 sets, daily range): BP systolic 90–97; BP diastolic 58–72; PULSE 71–94; RESP 18; TEMP 36.1–36.6; O2SAT 97–100
[2020-01-05 05:44] LABS: Anion Gap 8 mmol/L (8-16); Blood Urea Nitrogen 22 mg/dL (7-17); Calcium 9.4 mg/dL (8.4-10.2); Carbon Dioxide 26 mmol/L (22-30); Chloride 102 mmol/L (98-107); Estimated CRCL calculation 50 ml/min; Estimated Glomerular Filt Rate 51; Glucose 115 mg/dL (65-105); Potassium 4.6 mmol/L (3.4-5.0); Sodium 136 mmol/L (137-145)
[2020-01-05 07:57] LABS: Glucose Point of Care 105 (65-105)
--- NOTE | 2020-01-05 08:49 | PM.PNCARD ---
Progress Note: A&P Assessment and Plan (1) Acute exacerbation of CHF (congestive heart failure): Qualifiers: Heart failure type: systolic Qualified Code(s): I50.23 - Acute on chronic systolic (congestive) heart failure Code(s): I50.9 - Heart failure, unspecified Status: Acute Assessment and Plan: 59 y/o female with h/o Non ischemic cardiomyopathy diagnosed in August 2018 and severe mitral valve regurgitation status post [facility] 2019 who presented with shortness of breath and acute resp failure She required BiPAP initially. now on room air oxygen 2D echo showed moderate to severe MR as well as mild to mod increased in inflow gradient. EF remains severely reduced 25% She is better compensated from CHF standpoint. She had short run of A fib but now remains in sinus rhythm Plan initially was to [facility] to [facility] for further work up/intervention on her mitral disease. No beds available. As she is stable will discharge patient and has her follow up with her batcher operator within a week Following changes were made on her meds this admission D/C Torsemide. Start Bumex 1 mg BID D/C Coreg. Start Metoprolol 25 mg daily Continue Lisinopril and digoxin as before Start Amiodarone 200 mg daily (2) Nonischemic cardiomyopathy: Code(s): I42.8 - Other cardiomyopathies Status: Acute Assessment and Plan: Likely due to underlying valvular disease. S/p Clip in Mar 2019.Now still with moderate to severe MR. (3) Acute respiratory failure: Qualifiers: Respiratory failure complication: hypoxia Qualified Code(s): J96.01 - Acute respiratory failure with hypoxia Code(s): J96.00 - Acute respiratory failure, unspecified whether with hypoxia or hypercapnia Status: Acute Assessment and Plan: required Bipap. better now. Continue Bumex (4) Paroxysmal atrial fibrillation: Code(s): I48.0 - Paroxysmal atrial fibrillation Status: Acute Assessment and Plan: she had few episodes of symptomatic atrial fibrillation with rapid ventricular response. Continue amiodarone,Dig, and metoprolol Will consider anticoagulation but will hold off starting now incase she needs to undergo any procedure for her mitral valve . Subjective Date/time seen: 01/05/20 08:49 She feels much better. Denies dyspnea or orthopnea Review of Systems Review of Systems: All systems reviewed & are unremarkable except as noted in HPI and below Exam Narrative: Exam Narrative: General: Appears somewhat anxious but in no distress ormocephalic atraumatic, no JVD, , pupils are equal and react Respiratory: Clear lungs Cardiovascular: mildly tachycardic, positive murmur, no JVD, trace lower ext edema Gastrointestinal: distended, nontender, positive bowel sounds, soft Skin: cool to touch, mildly diaphoretic, mild pallor Musculoskeletal:trace edema, no clubbing, no cyanosis Neurological: no gross deficits Psychiatric: appropriate mood and affect, pleasant and cooperative : deferred Hematologic/lymphatic: no petechiae, no bruising Objective Data Vital Signs Vital Signs: Vital Signs - 24 hr 01/04/20 08:53 01/04/20 08:54 01/04/20 08:57 Temperature Pulse Rate 72 73 74 Respiratory Rate Blood Pressure Pulse Oximetry 01/04/20 09:02 01/04/20 09:16 01/04/20 10:00 Temperature Pulse Rate 66 82 Respiratory Rate 20 Blood Pressure 104/73 Pulse Oximetry 99 97 01/04/20 12:00 01/04/20 14:00 01/04/20 16:00 Temperature 36.4 C 35.8 C L Pulse Rate 90 84 72 Respiratory Rate 16 12 Blood Pressure 117/100 H 98/64 L Pulse Oximetry 99 94 01/04/20 16:30 01/04/20 17:10 01/04/20 18:00 Temperature Pulse Rate 74 88 74 Respiratory Rate Blood Pressure Pulse Oximetry 01/04/20 18:13 01/04/20 19:45 01/04/20 20:00 Temperature 36.5 C Pulse Rate 75 98 88 Respiratory Rate 20 Blood Pressure 106/52 L 113/71
[2020-01-05] MEDS: DIGOXIN TAB 125 MCG TABLET PO (10:11)
[2020-01-05] MEDS: BUMETANIDE INJ 1 MG/4 ML VIAL IV PUSH (10:11)
[2020-01-05] MEDS: buPROPion HCL XL (24 HR) 150 MG TABCR PO (10:11)
[2020-01-05] MEDS: ATORVASTATIN 40 MG TABLET PO (10:11)
[2020-01-05] MEDS: POTASSIUM CHLORIDE 10 MEQ TABLET.ER 40 MEQ PO (10:12)
[2020-01-05] MEDS: DOCUSATE SODIUM 100 MG CAPSULE PO (10:12)
[2020-01-05] MEDS: METOPROLOL SUCCINATE EXT REL 25 MG TABCR PO (10:12)
[2020-01-05] MEDS: GABAPENTIN 300 MG CAPSULE PO (10:12)
[2020-01-05] MEDS: AMIODARONE HCL 200 MG TABLET PO (10:12)
[2020-01-05] MEDS: ENOXAPARIN 40 MG/0.4 ML SYRINGE SUB-Q (10:13)
--- NOTE | 2020-01-05 18:41 | PM.DS ---
DS: Admitting Diagnosis Admitting Diagnosis Admitting Diagnosis: Shortness of breath DS: Discharge Diagnosis Discharge Diagnosis (1) Acute exacerbation of CHF (congestive heart failure): Qualifiers: Heart failure type: systolic Qualified Code(s): I50.23 - Acute on chronic systolic (congestive) heart failure Code(s): I50.9 - Heart failure, unspecified Status: Acute Assessment and Plan: Chest x-ray showed cardiomegaly with pulmonary edema. BNP was 1500. She was in respiratory distress on admission. she has been started on Bumex IV. Repeat echocardiogram EF 15%, thought primarily secondary to mitral valve regurgitation resumed beta bertha and franklyn as bp will allowed and diuresed well with marked improvement and able to be discharged to follow-up with her sliver chopper (2) Acute respiratory failure: Qualifiers: Respiratory failure complication: hypoxia Qualified Code(s): J96.01 - Acute respiratory failure with hypoxia Code(s): J96.00 - Acute respiratory failure, unspecified whether with hypoxia or hypercapnia Status: Acute Assessment and Plan: Acute hypoxic respiratory failure related to acute CHF exacerbation. Patient came by private car and was in tripod position on presentation. patient weaned from bipap 01/02. and on room air at the time of discharge and 100% saturation (3) Chest pain: Qualifiers: Chest pain type: unspecified Qualified Code(s): R07.9 - Chest pain, unspecified Code(s): R07.9 - Chest pain, unspecified Status: Acute Assessment and Plan: EKG showing no acute changes. Troponin slightly elevated at 0.036 but felt this is related to the CHF and not ischemia. Patient had a left heart catheterization August 2018 which showed no significant coronary disease. (4) Daytime somnolence: Code(s): R40.0 - Somnolence Status: Acute Assessment and Plan: Patient has symptoms of sleep apnea. suggest formal sleep study in future (5) Hyperglycemia: Code(s): R73.9 - Hyperglycemia, unspecified Status: Acute Assessment and Plan: Glucose on admission was 323. She has no history of diabetes. FBS 95 today and A1c only 5.5 (6) Hypertension: Code(s): I10 - Essential (primary) hypertension Status: Acute Assessment and Plan: Patient has a history of hypertension. Blood pressure elevated on admission due to her respiratory failure. Blood pressure since that time has become soft. continue low-dose beta-bertha and Franklyn (7) Mitral regurgitation: Code(s): I34.0 - Nonrheumatic mitral (valve) insufficiency Status: Acute Assessment and Plan: Patient had severe mitral valve regurgitation requiring mitral valve clip. No echocardiogram since the surgery. Echocardiogram now showing WI so may need surgical intervention. with planning on transferring to [facility] but markedly improved was able to be discharged home and follow-up with sliver chopper (8) DVT prophylaxis: Code(s): Z29.9 - Encounter for prophylactic measures, unspecified Status: Acute Assessment and Plan: Lovenox while inpatient DS: Summary Hospital Course Hospital Course: 59-year-old white female with known heart failure and ring repair of mitral valve admitted with increasing heart failure with acute respiratory failure. She responded to IV diuresis and eventually on room air at 100%. Plan was to transfer to [facility] where her sliver chopper his for evaluation for possible surgical intervention but no beds were available. She markedly improved with resolution of shortness of breath heart failure and edema and was able to be discharged home with medication readjustments and follow-up with her sliver chopper Time Spent with Patient Time attestation: Total time spent providing and/or coordinating discharge services: 35 minutes Exam Narrative: Exam Emmanuel
== END 2020-01-05 10:50 | disposition home or self-care (01) | DRG 194 ==
LOC: ANHED 01:24 → ANHIMU 03:04
PROVIDERS: Internal Medicine; Admitting Provider Internal Medicine; Emergency Provider Emergency Medicine; PCP Emergency Medicine; Visit Provider Internal Medicine
DX: I11.0 Hypertensive heart disease with heart failure (principal); I50.23 Acute on chronic systolic (congestive) heart failure; J96.01 Acute respiratory failure with hypoxia; I48.0 Paroxysmal atrial fibrillation; I42.8 Other cardiomyopathies; I34.0 Nonrheumatic mitral (valve) insufficiency; R40.0 Somnolence; R73.9 Hyperglycemia, unspecified; E78.00 Pure hypercholesterolemia, unspecified; Z79.899 Other long term (current) drug therapy; Z87.891 Personal history of nicotine dependence; Z85.3 Personal history of malignant neoplasm of breast
CPT/HCPCS: 36415; 71045; 80048; 80053; 80069; 80162; 83036; 83735; 83880; 84439; 84443; 84484; 85025; 85027; 85610; 85730; 93005; 93306; 94002; 96372; 96374; 96375; 96376; 99285; A9270; G0378; G0379; J1650; J2060; J2270; J2405

== ENCOUNTER 2020-06-26 10:00 | Outpatient (CLI) | payer OTHER, SELFPAY ==
--- NOTE | 2020-06-26 10:24 | ECG_ITS ---
Measurements Intervals Reading Rate: 81 P: 40 AK: 175 QRS: 3 QRSD: 93 T: 63 QT: 375 QTc: 436 Interpretive Statements SINUS RHYTHM ST-T WAVE ABNORMALITY IN ANTEROLATERAL LEADS- CONSIDER ISCHEMIA ABNORMAL ECG Electronically Signed On 06-26-2020 11:18:45 INTERFACE ENGINEER by Orlando Devi D.O.
== END 2020-06-26 10:01 | disposition home or self-care (01) ==
PROVIDERS: PCP Emergency Medicine
DX: Z95.2 Presence of prosthetic heart valve (principal); R94.31 Abnormal electrocardiogram [ECG] [EKG]
CPT/HCPCS: 93005

== ENCOUNTER 2020-07-22 13:36 | Outpatient (CLI) | payer OTHER, SELFPAY ==
[2020-07-22 14:42] LABS: INR 2.4; Prothrombin Time 26.3 Seconds (11.1-14.7)
== END 2020-07-22 13:37 | disposition home or self-care (01) ==
PROVIDERS: PCP Emergency Medicine
DX: Z79.01 Long term (current) use of anticoagulants (principal); Z95.4 Presence of other heart-valve replacement
CPT/HCPCS: 36415; 85610

== ENCOUNTER 2020-07-28 13:09 | Outpatient (RCR) | payer OTHER, SELFPAY ==
[2020-07-28 14:03] LABS: INR 1.8; Prothrombin Time 21.8 Seconds (11.1-14.7)
== END 2020-07-28 13:10 | disposition home or self-care (01) ==
LOC: ANHLAB 13:09
DX: Z95.4 Presence of other heart-valve replacement (principal); Z79.01 Long term (current) use of anticoagulants
CPT/HCPCS: 36415; 85610

== ENCOUNTER 2020-10-20 12:55 | Outpatient (RCR) | payer OTHER, SELFPAY ==
[2020-08-03 14:34] LABS: INR 3.3
[2020-08-10 14:30] LABS: Prothrombin Time 31.8 Seconds (11.1-14.7)
[2020-08-17 15:02] LABS: INR 3.7; Prothrombin Time 37.2 Seconds (11.1-14.7)
[2020-08-24 16:48] LABS: INR 2.9; Prothrombin Time 30.6 Seconds (11.1-14.7)
[2020-09-05 09:54] LABS: INR 2.7; Prothrombin Time 29.5 Seconds (11.1-14.7)
[2020-09-19 13:12] LABS: INR 4.1
[2020-09-19 13:14] LABS: NT Pro B Type Natriuretic Pept 1290 pg/mL (5-100)
[2020-09-28 15:17] LABS: INR 3.6
[2020-09-28 15:30] LABS: NT Pro B Type Natriuretic Pept 194 pg/mL (5-100)
[2020-10-06 13:56] LABS: INR 3.9; Prothrombin Time 38.6 Seconds (11.1-14.7)
[2020-10-06 14:04] LABS: NT Pro B Type Natriuretic Pept 696 pg/mL (5-100)
[2020-10-13 12:48] LABS: INR 3.4; Prothrombin Time 34.6 Seconds (11.1-14.7)
[2020-10-20 14:06] LABS: INR 2.8; Prothrombin Time 30.1 Seconds (11.1-14.7)
== END 2020-11-01 23:59 | disposition home or self-care (01) ==
LOC: ANHLAB 12:55
DX: Z51.81 Encounter for therapeutic drug level monitoring (principal); Z95.4 Presence of other heart-valve replacement; Z79.01 Long term (current) use of anticoagulants
CPT/HCPCS: 36415; 83880; 85610

== ENCOUNTER 2020-11-18 10:43 | Outpatient (CLI) | payer OTHER, SELFPAY ==
[2020-11-18 11:38] LABS: Basophils Absolute Auto 0.1 K/mm3 (0.0-0.1); Basophils Percent Auto 0.7 % (0.2-1.2); Eosinophils Absolute Auto 0.1 K/mm3 (0-0.3); Eosinophils Percent Auto 1.9 % (0-4.4); Hematocrit 44.2 % (37.0-47.0); Immature Granulocyte Absolute 0.03 K/mm3 (0.00-0.031); Immature Granulocyte Percent A 0.4 % (0-0.5); Lymphocytes Absolute Auto 1.93 K/mm3 (0.9-3.2); Lymphocytes Percent Auto 28.4 % (18.3-44.2); Mean Corpuscular HGB Conc 31.7 g/dl (32-36); Mean Corpuscular Hemoglobin 29.9 pg (26-34); Mean Corpuscular Volume 94.2 fl (80-100); Mean Platelet Volume 11.6 fl (7.4-10.4); Monocytes Absolute Auto 0.5 K/mm3 (0.1-0.6); Monocytes Percent Auto 7.8 % (2.6-8.5); Neutrophils Absolute Auto 4.1 K/mm3 (1.3-6.7); Neutrophils Percent Auto 60.8 % (45.5-73.1); Platelet Count Result 267 k/mm3 (150-375); Red Blood Count 4.69 M/mm3 (4.2-5.4); Red Cell Distribution Width 15.1 % (11.5-14.5); White Blood Count 6.8 K/mm3 (4.5-10.0)
[2020-11-18 11:52] LABS: Alanine Aminotransferase 26 U/L (4-35); Albumin Level 4.5 g/dL (3.5-5.1); Alkaline Phosphatase 105 U/L (38-126); Anion Gap 8 mmol/L (8-16); Aspartate Amino Transferase 34 U/L (14-36); Bilirubin,Total 0.5 mg/dL (0.2-1.3); Blood Urea Nitrogen 14 mg/dL (7-17); Calcium 9.5 mg/dL (8.4-10.2); Carbon Dioxide 24 mmol/L (22-30); Chloride 108 mmol/L (98-107); Cholesterol 166 mg/dL (0-200); Estimated Glomerular Filt Rate 57; Glucose 104 mg/dL (65-105); HDL Direct 37 mg/dL; Magnesium 1.8 mg/dL (1.6-2.3); Sodium 140 mmol/L (137-145); Triglycerides 169 mg/dL (<150)
[2020-11-18 11:53] LABS: Hemoglobin A1C 5.7 % (<5.7)
[2020-11-18 11:56] LABS: Add Urine Microscopic? YES; Appearance Urine Cloudy (Clear); Bacteria Urine Trace /hpf; Bilirubin Urine Negative (Negative); Blood Urine 2+ (Negative); Color Urine Yellow (Yellow); Glucose Urine UA Negative (Negative); Ketones Urine Negative (Negative); Leukocyte Esterase Ur 3+ LEU/UL (Negative); Mucus Urine Rare /lpf; Nitrate Urine Negative (Negative); Protein Urine 1+ mg/dL (Negative); RBC Urine 21-50 /hpf (0-2); Specific Grav Ur 1.023 (1.001-1.035); Squamous Epithelial Cell Urine Many /hpf (Few); Urobilinogen Urine Negative mg/dL (<2.0); WBC Urine >75 /hpf
[2020-11-18 12:04] LABS: LDL Cholesterol Direct 77 mg/dL
[2020-11-18 12:37] LABS: Vitamin D 25 Hydroxy 50.5 ng/mL
== END 2020-11-18 10:44 | disposition home or self-care (01) ==
LOC: ANHLAB 10:46
PROVIDERS: PCP Family Medicine; Visit Provider Family Medicine
DX: Z00.00 Encounter for general adult medical examination without abnormal findings (principal); I25.10 Atherosclerotic heart disease of native coronary artery without angina pectoris; E66.9 Obesity, unspecified; Z13.9 Encounter for screening, unspecified
CPT/HCPCS: 36415; 80053; 80061; 81001; 82306; 83036; 83735; 84443; 85025; 85610; 87077; 87086; 87088; 87186

== ENCOUNTER 2020-12-26 07:51 | Outpatient (CLI) | payer OTHER, SELFPAY ==
--- NOTE | ~2020-12-26 | XR_ITS ---
XR chest 2V 12/26/2020 08:24 Indication: Dyspnea. Procedure: 2 view chest Comparison: Comparison to multiple prior studies sequentially, with oldest reviewed study dated 05/27. Findings: Status post median sternotomy for CABG. There are surgical clips in the left axilla. There is a prosthetic heart valve. No focal air space disease, pulmonary edema, pleural effusion or suspect ed pneumothorax. Impression: 1: No acute cardiopulmonary disease. Reviewed, dictated and finalized at location A. Impression: 1: No acute cardiopulmonary disease.
== END 2020-12-26 07:52 | disposition home or self-care (01) ==
PROVIDERS: PCP Family Medicine; Visit Provider Family Medicine
DX: Z87.891 Personal history of nicotine dependence (principal)
CPT/HCPCS: 36415; 71046; 85610

== ENCOUNTER 2021-01-23 16:25 | Outpatient (RCR) | payer OTHER, SELFPAY ==
[2020-11-02 14:28] LABS: INR 3.4; Prothrombin Time 34.8 Seconds (11.1-14.7)
[2020-11-02 14:32] LABS: Anion Gap 5 mmol/L (8-16); Blood Urea Nitrogen 15 mg/dL (7-17); Calcium 9.4 mg/dL (8.4-10.2); Carbon Dioxide 24 mmol/L (22-30); Chloride 111 mmol/L (98-107); Estimated Glomerular Filt Rate > 60; Glucose 95 mg/dL (65-105); Potassium 4.3 mmol/L (3.4-5.0); Sodium 140 mmol/L (137-145)
[2020-11-18 11:52] LABS: INR 2.4; Prothrombin Time 25.8 Seconds (11.1-14.7)
[2020-11-25 11:55] LABS: Prothrombin Time 30.2 Seconds (11.1-14.7)
[2020-11-25 11:57] LABS: Anion Gap 6 mmol/L (8-16); Blood Urea Nitrogen 17 mg/dL (7-17); Calcium 9.6 mg/dL (8.4-10.2); Carbon Dioxide 24 mmol/L (22-30); Chloride 110 mmol/L (98-107); Estimated Glomerular Filt Rate 57; Glucose 92 mg/dL (65-110); Sodium 140 mmol/L (137-145)
[2020-12-07 13:12] LABS: INR 2.3; Prothrombin Time 24.6 Seconds (11.1-14.7)
[2020-12-07 13:13] LABS: Anion Gap 6 mmol/L (8-16); Blood Urea Nitrogen 12 mg/dL (7-17); Calcium 8.9 mg/dL (8.4-10.2); Carbon Dioxide 24 mmol/L (22-30); Chloride 110 mmol/L (98-107); Estimated Glomerular Filt Rate > 60; Glucose 99 mg/dL (65-110); Potassium 4.2 mmol/L (3.4-5.0); Sodium 140 mmol/L (137-145)
[2020-12-16 14:15] LABS: Anion Gap 12 mmol/L (8-16); Blood Urea Nitrogen 12 mg/dL (7-17); Carbon Dioxide 21 mmol/L (22-30); Chloride 108 mmol/L (98-107); Estimated Glomerular Filt Rate 51; Glucose 173 mg/dL (65-110); INR 2.9; Potassium 3.5 mmol/L (3.4-5.0); Prothrombin Time 29.6 Seconds (11.1-14.7); Sodium 141 mmol/L (137-145)
[2020-12-26 08:36] LABS: INR 2.6; Prothrombin Time 27.5 Seconds (11.1-14.7)
[2021-01-23 17:00] LABS: INR 2.3
[2021-01-23 17:16] LABS: Anion Gap 7 mmol/L (8-16); Blood Urea Nitrogen 11 mg/dL (7-17); Calcium 8.9 mg/dL (8.4-10.2); Carbon Dioxide 26 mmol/L (22-30); Chloride 109 mmol/L (98-107); Estimated Glomerular Filt Rate 57; Glucose 82 mg/dL (65-110); Potassium 4.3 mmol/L (3.4-5.0); Sodium 142 mmol/L (137-145)
== END 2021-01-31 23:59 | disposition home or self-care (01) ==
LOC: ANHLAB 16:25
DX: Z51.81 Encounter for therapeutic drug level monitoring (principal); I50.23 Acute on chronic systolic (congestive) heart failure; Z95.4 Presence of other heart-valve replacement; Z79.01 Long term (current) use of anticoagulants; Z79.899 Other long term (current) drug therapy
CPT/HCPCS: 36415; 80048; 85610

== ENCOUNTER 2021-02-14 14:03 | Outpatient (CLI) | payer OTHER, SELFPAY ==
--- NOTE | ~2021-02-14 | DEXA_ITS ---
Bone Density Report Name: Alexandra Crawford Age: 60 Sex: Female Ethnicity: White Date of : 1960 Indication: postmenopausal; prior fracture; cancer; Referring Provider: Reginaldo, [facility] Study: Bone densitometry was performed. Exam Date: February 14, 2021 Accession number: [id number] Bone Density: Region BMD T-score Z-score Classification AP Spine (L1-L4) 0.882 -1.5 -0.1 Osteopenia Femoral Neck (Left) 0.853 0.0 1.3 Normal Total Hip (Left) 1.008 0.5 1.5 Normal Total Hip Bilateral Avg 0.993 0.4 1.4 Normal Femoral Neck (Right) 0.823 -0.2 1.0 Normal Total Hip (Right) 0.978 0.3 1.2 Normal World Health Organization criteria for BMD impression classify patients as: Normal (T-score at or above -1.0), Osteopenia (T-score between -1.0 and -2.5), or Osteoporosis (T-score at or below -2.5). 10-year Fracture Risk(1): Major Osteoporotic Fracture 10% Hip Fracture 0.3% Reported Risk Factors: [place] (), Neck BMD=0.823, BMI=31.9, previous fracture (1) FRAX(R) Version 3.08. Fracture probability calculated for an untreated patient. Fracture probability may be lower if the patient has received treatment. Clinical Information Provided by Patient: Has had a low trauma fracture Has used the following medications: Vitamin D, Calcium Has the following medical conditions: Cancer Patient maximum height was 63 Menopause Age: 51 Onset of menses at age 14 Number of children 3 Impression: The patient has low bone mass, based on the Total Spine T-score. The patient has an estimated ten-year risk of hip fracture of 0.3% and an estimated ten-year risk of major fracture of 10%, based on the WHO FRAX algorithm. The patient has risk factors, including: previous fracture. Discussion: BONE DENSITY IS LOW AT ONE OR MORE SKELETAL SITES. This patient's lowest T-score is low at one or more skeletal sites. It meets the World Health Organization's (WHO) criteria for ?low bone mass? (T-score between -1.0 and -2.5). The patient's 10-year risk of fracture as calculated by FRAX is less than the threshold where pharmacological therapy is recommended by the National Osteoporosis Foundation (NOF). However, all treatment decisions require clinical judgment and consideration of individual patient factors, including patient preferences, comorbidities, previous drug use, risk factors not captured in the FRAX model (e.g., frailty, falls, vitamin D deficiency, increased bone turnover, interval significant decline in bone density) and possible under or overestimation of fracture risk by FRAX. The patient should follow a healthful lifestyle (good nutrition with adequate calcium and vitamin D, and appropriate weight-bearing exercise). Follow-Up: Consider repeating this study in 2 to 3 years to reassess this patient's status, or sooner if there is some
== END 2021-02-14 14:04 | disposition home or self-care (01) ==
LOC: ANHIMG 14:05
PROVIDERS: PCP Family Medicine; Visit Provider Family Medicine
DX: Z91.89 Other specified personal risk factors, not elsewhere classified (principal); Z78.9 Other specified health status; M85.88 Other specified disorders of bone density and structure, other site
CPT/HCPCS: 77080

== ENCOUNTER 2021-05-01 12:06 | Outpatient (RCR) | payer OTHER, SELFPAY ==
[2021-02-14 15:18] LABS: INR 2.5; Prothrombin Time 26.4 Seconds (11.1-14.7)
[2021-03-03 14:31] LABS: INR 2.9; Prothrombin Time 29.2 Seconds (11.1-14.7)
[2021-03-21 14:35] LABS: INR 2.8; Prothrombin Time 28.9 Seconds (11.1-14.7)
[2021-04-03 18:04] LABS: INR 3.9
[2021-04-16 12:56] LABS: INR 3.3; Prothrombin Time 32.5 Seconds (11.1-14.7)
[2021-05-01 12:37] LABS: INR 2.8
== END 2021-05-15 23:59 | disposition home or self-care (01) ==
LOC: ANHLAB 12:06
PROVIDERS: PCP Family Medicine
DX: Z51.81 Encounter for therapeutic drug level monitoring (principal); Z95.4 Presence of other heart-valve replacement; Z79.01 Long term (current) use of anticoagulants
CPT/HCPCS: 36415; 85610

== ENCOUNTER 2021-07-10 10:42 | Outpatient (RCR) | payer OTHER, SELFPAY ==
[2021-05-31 10:32] LABS: Cholesterol 201 mg/dL (0-200); HDL Direct 41 mg/dL; Triglycerides 178 mg/dL (<150)
[2021-05-31 10:37] LABS: Prothrombin Time 30.3 Seconds (11.1-14.7)
[2021-05-31 10:42] LABS: LDL Cholesterol Direct 112 mg/dL
[2021-06-29 15:21] LABS: INR 2.1; Prothrombin Time 23.1 Seconds (11.1-14.7)
[2021-07-04 16:39] LABS: Prothrombin Time 22.3 Seconds (11.1-14.7)
[2021-07-10 11:32] LABS: Cholesterol 173 mg/dL (0-200); HDL Direct 34 mg/dL; Triglycerides 118 mg/dL (<150)
[2021-07-10 11:43] LABS: LDL Cholesterol Direct 98 mg/dL
[2021-07-10 17:22] LABS: Prothrombin Time 30.4 Seconds (11.1-14.7)
== END 2021-07-17 12:54 | disposition other institution (70) ==
LOC: ANHLAB 10:42
PROVIDERS: PCP Family Medicine
DX: Z51.81 Encounter for therapeutic drug level monitoring (principal); E78.2 Mixed hyperlipidemia; Z95.4 Presence of other heart-valve replacement; Z79.01 Long term (current) use of anticoagulants
CPT/HCPCS: 36415; 80061; 85610

== ENCOUNTER 2021-10-03 14:50 | Outpatient (RCR) | payer OTHER, SELFPAY ==
[2021-07-17 13:42] LABS: Prothrombin Time 47.8 Seconds (11.1-14.7)
[2021-07-17 14:02] LABS: INR 5.4
[2021-07-20 14:44] LABS: INR 2.9; Prothrombin Time 29.3 Seconds (11.1-14.7)
[2021-08-02 15:06] LABS: INR 3.2; Prothrombin Time 31.5 Seconds (11.1-14.7)
[2021-08-14 14:39] LABS: INR 3.6; Prothrombin Time 34.7 Seconds (11.1-14.7)
[2021-08-29 14:40] LABS: INR 3.6; Prothrombin Time 35.1 Seconds (11.1-14.7)
[2021-09-10 16:39] LABS: INR 2.8; Prothrombin Time 28.7 Seconds (11.1-14.7)
[2021-09-26 15:00] LABS: INR 2.4; Prothrombin Time 25.3 Seconds (11.1-14.7)
[2021-10-03 15:17] LABS: INR 2.3; Prothrombin Time 24.9 Seconds (11.1-14.7)
== END 2021-10-15 23:59 | disposition home or self-care (01) ==
LOC: ANHLAB 14:50
PROVIDERS: PCP Family Medicine
DX: Z51.81 Encounter for therapeutic drug level monitoring (principal); Z95.4 Presence of other heart-valve replacement; Z79.01 Long term (current) use of anticoagulants
CPT/HCPCS: 36415; 85610

== ENCOUNTER 2021-11-24 14:29 | Emergency (ER) | payer OTHER, SELFPAY ==
[2021-11-24 14:32] VITALS: BP 120/87; PULSE 95; RESP 18; TEMP 36.2; O2SAT 96
--- NOTE | 2021-11-24 14:39 | ED.GENADULT ---
HPI - General Adult General Chief complaint: Extremity Injury, Upper Stated complaint: Rt Elbow Bruising History of Present Illness HPI narrative: Patient is a 61-year-old female who presents to the [facility] accompanied by her for an INR recommended by her highway maintainer. Patient reports she called her highway maintainer this morning after noticing her left elbow to be erythematous and tender. Kick Plate Installer recommended urgent care with labs. Last INR was 3.6. Related Data Home Medications Medication Instructions Recorded Confirmed alprazolam 0.25 mg tablet 0.25 mg PO TID PRN Anxiety 01/02/20 11/24/21 amitriptyline 25 mg tablet 25 mg PO HS sleep 01/02/20 11/24/21 atorvastatin 40 mg tablet 40 mg PO DAILY hypercholesterolemia 01/02/20 11/24/21 bupropion HCl 150 mg 24 hr tablet, 150 mg PO DAILY depression 01/02/20 11/24/21 extended release citalopram 40 mg tablet 40 mg PO HS sleep 01/02/20 11/24/21 docusate sodium 100 mg capsule 100 mg PO DAILY 01/02/20 11/24/21 (DOK) gabapentin 300 mg capsule 300 mg PO DAILY 01/02/20 11/24/21 lisinopril 5 mg tablet 5 mg PO HS HTN 01/02/20 11/24/21 mirtazapine 30 mg tablet 30 mg PO HS 01/02/20 11/24/21 potassium chloride 10 mEq 40 meq PO BID 01/02/20 11/24/21 tablet,extended release Allergies Allergy/AdvReac Type Severity Reaction Status Date / Time spironolactone AdvReac Mild Rash Verified 11/24/21 14:32 Review of Systems Review of Systems: Denies injury, fever, chills, sweats, swelling, warmth, severe pain, decreased range of motion, nausea, vomiting, shortness of breath, LOC, pain, heart palpitations, and dizziness PMF Past Medical History Medical History Cancer of left breast 2013treated with radiation therapy Hypercholesterolemia Hypertension Kidney stones 2015 Nonischemic cardiomyopathy noted on trans esophageal echocardiogram August 2018 with severe mitral valve regurgitation EF of 25% Surgical History Surgical History History of cardiac catheterization with no significant coronary artery disease noted August 2018 S/P mitral valve clip implantation Status post left breast lumpectomy Family History Family History Mother Cerebrovascular accident Father AICD (automatic cardioverter/defibrillator) present RADHA (obstructive sleep apnea) Chronic obstructive pulmonary disease Social History Social History Social History: The patient lives with her fiance and her 24-year-old daughter who has Down syndrome. 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 She used to smoke a 3rd of a pack of cigarettes per day but quit smoking in August of 2018. She denies any alcohol use or illicit substance use. Smoking packs per day: 0.5 Smoking cigarettes per day: 10.0 Years smoked: 22 Smoking pack-years: 11.00 Smoking status: Former smoker Tobacco type: cigarettes Second hand tobacco smoke exposure: No Smoking end date: 09/01/18 Alcohol intake: never Substance use: never Gender identity (if verbalized by the patient): Female Spiritual care concerns: No Exam Narrative: GENERAL: Well-appearing, well-nourished, and in no acute distress. HEAD: Normocephalic, atraumatic. NECK: Supple. No Lymphadenopathy or nuchal rigidity appreciated. CHEST: Bilateral lung davis are clear to auscultation. No respiratory distress. No evidence of cough or pleuritic cp upon examination. HEART: Regular rate and rhythm. No murmur, gallop, or rub heard. EXTREMITIES: No evidence of injury, decreased ROM, swelling, cyanosis. No evidence of pain with active/passive ROM. Pulses palpable at 2+, strength 5/5, and cap refill < 3 seconds in affected extremity. DTRs normal. 5 x 5 cm of eryth
== END 2021-11-24 15:00 | disposition short-term general hospital (02) ==
PROVIDERS: Emergency Provider Nurse Practitioner Family; PCP Family Medicine
DX: Z51.81 Encounter for therapeutic drug level monitoring (principal); E78.00 Pure hypercholesterolemia, unspecified; I10 Essential (primary) hypertension; I42.8 Other cardiomyopathies; Z85.3 Personal history of malignant neoplasm of breast
CPT/HCPCS: 99212; G0463

== ENCOUNTER 2021-11-24 15:23 | Emergency (ER) | payer OTHER, SELFPAY ==
[2021-11-24 15:25] VITALS: BP 108/84; PULSE 91; RESP 14; TEMP 36.7; O2SAT 99
[2021-11-24 16:07] LABS: INR 3.5; Prothrombin Time 34.1 Seconds (11.1-14.7)
[2021-11-24 16:09] LABS: Partial Thromboplastin Time 71.9 SECONDS (22.3-36.8)
--- NOTE | 2021-11-24 17:11 | ED.RECABL ---
HPI - Recheck/Abnormal Lab/Rx General Chief Complaint: Recheck/Abnormal Lab/Rx Stated Complaint: ABNORMAL LABS Time Seen by Provider: 11/24/21 16:42 History of Present Illness HPI narrative: This is a 61-year-old female with past medical history significant for mitral valve replacement on Coumadin, who presents emergency department for INR check, after noting hyperpigmentation over the left elbow. The patient denies known trauma to the elbow, prolonged pressure applied to the elbow, elbow pain, fevers or chills. The patient went to urgent care for evaluation, and was sent here for INR check. Patient states she is compliant with her Coumadin and has not missed any recent doses. She has no other complaints today. Related Data Home Medications Medication Instructions Recorded Confirmed alprazolam 0.25 mg tablet 0.25 mg PO TID PRN Anxiety 01/02/20 11/24/21 amitriptyline 25 mg tablet 25 mg PO HS sleep 01/02/20 11/24/21 atorvastatin 40 mg tablet 40 mg PO DAILY hypercholesterolemia 01/02/20 11/24/21 bupropion HCl 150 mg 24 hr tablet, 150 mg PO DAILY depression 01/02/20 11/24/21 extended release citalopram 40 mg tablet 40 mg PO HS sleep 01/02/20 11/24/21 docusate sodium 100 mg capsule 100 mg PO DAILY 01/02/20 11/24/21 (DOK) gabapentin 300 mg capsule 300 mg PO DAILY 01/02/20 11/24/21 lisinopril 5 mg tablet 5 mg PO HS HTN 01/02/20 11/24/21 mirtazapine 30 mg tablet 30 mg PO HS 01/02/20 11/24/21 potassium chloride 10 mEq 40 meq PO BID 01/02/20 11/24/21 tablet,extended release Allergies Allergy/AdvReac Type Severity Reaction Status Date / Time spironolactone AdvReac Mild Rash Verified 11/24/21 16:59 Review of Systems Review of Systems: CONSTITUTIONAL: Denies fever, chills, or sweats. CARDIOVASCULAR: Denies chest pain, palpitations, or edema. RESPIRATORY: Denies cough or dyspnea. GASTROINTESTINAL: Denies abdominal pain, nausea, vomiting, or diarrhea. GENITOURINARY: Denies dysuria or hematuria. SKIN: Hyperpigmentation of the left elbow, denies rash or itching. MUSCULOSKELETAL: Denies back pain, joint pain, or myalgia. NEUROLOGIC: Denies headache, numbness, dizziness, or weakness. [facility] Past Medical History Medical History Cancer of left breast 2013treated with radiation therapy Hypercholesterolemia Hypertension Kidney stones 2015 Nonischemic cardiomyopathy noted on trans esophageal echocardiogram August 2018 with severe mitral valve regurgitation EF of 25% Surgical History Surgical History History of cardiac catheterization with no significant coronary artery disease noted August 2018 S/P mitral valve clip implantation Status post left breast lumpectomy Family History Family History Mother Cerebrovascular accident Father AICD (automatic cardioverter/defibrillator) present RADHA (obstructive sleep apnea) Chronic obstructive pulmonary disease Social History Social History Social History: The patient lives with her fiance and her 24-year-old daughter who has Down syndrome. 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 She used to smoke a 3rd of a pack of cigarettes per day but quit smoking in August of 2018. She denies any alcohol use or illicit substance use. Smoking packs per day: 0.5 Smoking cigarettes per day: 10.0 Years smoked: 22 Smoking pack-years: 11.00 Smoking status: Former smoker Tobacco type: cigarettes Second hand tobacco smoke exposure: No Smoking end date: 09/01/18 Alcohol intake: never Substance use: never Gender identity (if verbalized by the patient): Female Spiritual care concerns: No Exam Narrative: GENERAL: Well-appearing, well-nourished, and in no acute distress. HEAD: Normoc
== END 2021-11-24 17:46 | disposition home or self-care (01) ==
PROVIDERS: Emergency Medicine; Emergency Provider Preventive Medicine Aerospace Medicine; PCP Family Medicine
DX: L81.9 Disorder of pigmentation, unspecified (principal); E78.00 Pure hypercholesterolemia, unspecified; I10 Essential (primary) hypertension; I42.8 Other cardiomyopathies; Z85.3 Personal history of malignant neoplasm of breast; Z92.3 Personal history of irradiation; Z87.442 Personal history of urinary calculi; Z79.01 Long term (current) use of anticoagulants; Z95.2 Presence of prosthetic heart valve; Z87.891 Personal history of nicotine dependence
CPT/HCPCS: 36415; 85610; 85730; 99283

== ENCOUNTER 2022-01-10 14:48 | Outpatient (RCR) | payer OTHER, SELFPAY ==
[2021-10-16 10:25] LABS: INR 2.9; Prothrombin Time 29.4 Seconds (11.1-14.7)
[2021-10-31 18:06] LABS: INR 3.7; Prothrombin Time 35.9 Seconds (11.1-14.7)
[2021-11-07 15:44] LABS: INR 3.1
[2021-11-21 14:33] LABS: INR 3.6; Prothrombin Time 34.7 Seconds (11.1-14.7)
[2021-12-05 12:29] LABS: INR 3.8; Prothrombin Time 36.4 Seconds (11.1-14.7)
[2021-12-13 11:53] LABS: INR 2.2; Prothrombin Time 23.8 Seconds (11.1-14.7)
[2021-12-21 14:25] LABS: INR 2.2; Prothrombin Time 23.3 Seconds (11.1-14.7)
[2022-01-10 15:21] LABS: INR 2.1; Prothrombin Time 23.2 Seconds (11.1-14.7)
== END 2022-01-14 23:59 | disposition home or self-care (01) ==
LOC: ANHLAB 14:48
PROVIDERS: PCP Family Medicine
DX: Z51.81 Encounter for therapeutic drug level monitoring (principal); Z95.4 Presence of other heart-valve replacement; Z79.01 Long term (current) use of anticoagulants
CPT/HCPCS: 36415; 85610

== ENCOUNTER 2022-02-22 13:21 | Emergency (ER) | payer OTHER, SELFPAY ==
[2022-02-22 13:30] VITALS: BP 107/72; PULSE 87; RESP 16; TEMP 36.6; O2SAT 99
--- NOTE | 2022-02-22 14:06 | ED.RECABL ---
HPI - Recheck/Abnormal Lab/Rx General Chief Complaint: Recheck/Abnormal Lab/Rx <Abbey Baum PA-C - Last Filed: 02/22/22 16:50> Stated Complaint: INR 4.3, sent in for bleeding concern <RAFIA Mooney Last Filed: 02/22/22 16:50> Time Seen by Provider: 02/22/22 13:47 <RAFIA Mooney Last Filed: 02/22/22 16:50> Source: patient <RAFIA Mooney Last Filed: 02/22/22 16:50> Mode of arrival: ambulatory <RAFIA Mooney Last Filed: 02/22/22 16:50> Limitations: no limitations <RAFIA Mooney Last Filed: 02/22/22 16:50> History of Present Illness HPI narrative: Patient is a 61-year-old female who presents to the ED with report of abnormal labs. Patient reports she had outpatient labs drawn yesterday for her regional education coordinator and was called today to notify that her INR was elevated at 4.3. Patient has a history of mechanical mitral valve and is on Coumadin with an INR goal of 2.5-3.5. She typically has her INR checked every couple weeks and it has been WNL. Patient does report she has noticed a scant amount of pink/red discoloration in her panty liners the last few days, but was unsure if it was blood. She no longer has menstrual cycles. Unsure if she has had any blood in her urine. Occasional dysuria. No rectal bleeding, melena, abdominal pain, N/V/D, epistaxis, chest pain, SOB. <RAFIA Mooney Last Filed: 02/22/22 16:50> Related Data Home Medications: Home Medications Medication Instructions Recorded Confirmed alprazolam 0.25 mg tablet 0.25 mg PO TID PRN Anxiety 01/02/20 11/24/21 amitriptyline 25 mg tablet 25 mg PO HS sleep 01/02/20 11/24/21 atorvastatin 40 mg tablet 40 mg PO DAILY hypercholesterolemia 01/02/20 11/24/21 bupropion HCl 150 mg 24 hr tablet, 150 mg PO DAILY depression 01/02/20 11/24/21 extended release citalopram 40 mg tablet 40 mg PO HS sleep 01/02/20 11/24/21 docusate sodium 100 mg capsule 100 mg PO DAILY 01/02/20 11/24/21 (DOK) gabapentin 300 mg capsule 300 mg PO DAILY 01/02/20 11/24/21 lisinopril 5 mg tablet 5 mg PO HS HTN 01/02/20 11/24/21 mirtazapine 30 mg tablet 30 mg PO HS 01/02/20 11/24/21 potassium chloride 10 mEq 40 meq PO BID 01/02/20 11/24/21 tablet,extended release <Abbey Baum PA-C - Last Filed: 02/22/22 16:50> Allergies/Adverse Reactions: Allergies Allergy/AdvReac Type Severity Reaction Status Date / Time spironolactone AdvReac Mild Rash Verified 11/24/21 16:59 <Abbey Baum PA-C - Last Filed: 02/22/22 16:50> Review of Systems Review of Systems: CONSTITUTIONAL: Denies fever, chills, or sweats. ENT: Denies rhinorrhea, congestion, sore throat, epistaxis. CARDIOVASCULAR: Denies chest pain. RESPIRATORY: Denies cough, hemoptysis, dyspnea. GASTROINTESTINAL: Denies abdominal pain, nausea, vomiting, diarrhea, melena, rectal bleeding. GENITOURINARY: Reports dysuria and possible hematuria. Denies vaginal bleeding. SKIN: Denies rash or itching. <Abbey Baum PA-C - Last Filed: 02/22/22 16:50> All systems reviewed & are unremarkable except as noted in HPI and below <Abbey Baum PA-C - Last Filed: 02/22/22 16:50> PMFSH Past Medical History Medical History: Medical History Cancer of left breast 2014treated with radiation therapy Hypercholesterolemia Hypertension Kidney stones 2015 Nonischemic cardiomyopathy noted on trans esophageal echocardiogram August 2018 with severe mitral valve regurgitation EF of 25% <MOOK MooneyC - Last Filed: 02/22/22 16:50> Surgical History Surgical History: Surgical History History of cardiac catheterization with no significant coronary artery disease noted August 2018 S/P mitral valve clip implantation Status post left breast lumpectomy <Abbey
[2022-02-22 15:05] LABS: Basophils Absolute Auto 0.1 K/mm3 (0.0-0.1); Basophils Percent Auto 0.9 % (0.2-1.2); Eosinophils Absolute Auto 0.1 K/mm3 (0-0.3); Eosinophils Percent Auto 1.3 % (0-4.4); Hematocrit 47.7 % (37.0-47.0); Hemoglobin 15.8 g/dL (12.0-15.0); Immature Granulocyte Absolute 0.03 K/mm3 (0.00-0.031); Immature Granulocyte Percent A 0.6 % (0-0.5); Lymphocytes Absolute Auto 2.01 K/mm3 (0.9-3.2); Lymphocytes Percent Auto 37.2 % (18.3-44.2); Mean Corpuscular HGB Conc 33.1 g/dl (32-36); Mean Corpuscular Volume 93.7 fl (80-100); Mean Platelet Volume 12.8 fl (7.4-10.4); Monocytes Absolute Auto 0.4 K/mm3 (0.1-0.6); Monocytes Percent Auto 7.4 % (2.6-8.5); Neutrophils Absolute Auto 2.8 K/mm3 (1.3-6.7); Neutrophils Percent Auto 52.6 % (45.5-73.1); Platelet Count Result 279 k/mm3 (150-375); Red Blood Count 5.09 M/mm3 (4.2-5.4); Red Cell Distribution Width 13.9 % (11.5-14.5); White Blood Count 5.4 K/mm3 (4.5-10.0)
[2022-02-22 15:17] LABS: Add Urine Microscopic? YES; Appearance Urine Cloudy (Clear); Bilirubin Urine Negative (Negative); Blood Urine 3+ (Negative); Color Urine Yellow (Yellow); Glucose Urine UA 3+ mg/dL (Negative); Ketones Urine Negative (Negative); Leukocyte Esterase Ur Negative LEU/UL (Negative); Mucus Urine Rare /lpf; Nitrate Urine Negative (Negative); Protein Urine Negative (Negative); Specific Grav Ur 1.027 (1.001-1.035); Squamous Epithelial Cell Urine Many /hpf (Few); Urobilinogen Urine Negative mg/dL (<2.0)
[2022-02-22 15:18] LABS: INR 3.5; Prothrombin Time 33.6 Seconds (11.1-14.7)
[2022-02-22 15:19] LABS: Partial Thromboplastin Time 66.7 SECONDS (22.3-36.8)
[2022-02-22 15:22] LABS: Alanine Aminotransferase 31 U/L (6-35); Albumin Level 4.6 g/dL (3.5-5.1); Alkaline Phosphatase 106 U/L (38-126); Anion Gap 9 mmol/L (8-16); Aspartate Amino Transferase 40 U/L (14-36); Bilirubin,Total 0.8 mg/dL (0.2-1.3); Blood Urea Nitrogen 13 mg/dL (7-17); Calcium 9.1 mg/dL (8.4-10.2); Carbon Dioxide 22 mmol/L (22-30); Chloride 109 mmol/L (98-107); Estimated CRCL calculation 57 ml/min; Estimated Glomerular Filt Rate > 60; Glucose 92 mg/dL (65-110); Potassium 4.1 mmol/L (3.4-5.0); Sodium 140 mmol/L (137-145)
[2022-02-22 15:35] VITALS: BP 107/78; PULSE 70; RESP 20; O2SAT 100
== END 2022-02-22 16:39 | disposition home or self-care (01) ==
PROVIDERS: Physician Assistant; Emergency Provider Emergency Medicine; PCP Family Medicine
DX: R31.21 Asymptomatic microscopic hematuria (principal); E78.00 Pure hypercholesterolemia, unspecified; I10 Essential (primary) hypertension; Z87.442 Personal history of urinary calculi; I42.8 Other cardiomyopathies; Z95.2 Presence of prosthetic heart valve; Z85.3 Personal history of malignant neoplasm of breast; Z92.3 Personal history of irradiation; Z87.891 Personal history of nicotine dependence
CPT/HCPCS: 36415; 80053; 81001; 85025; 85610; 85730; 99283

== ENCOUNTER 2022-07-03 14:30 | Outpatient (CLI) | payer OTHER, SELFPAY ==
--- NOTE | ~2022-07-03 | XR_ITS ---
XR hip RT min 3V w AP pelvis, XR femur RT min 2V 07/03/2022 15:06 Indication: Right hip and thigh pain Procedure: 4 views right hip including AP pelvis, 2 views right femur Comparison: No prior studies for comparison. Findings: There is mild osteoarthritis of the right hip. Normal mineralization. Pelvic rings are inta ct. Sacral foramen are symmetric. No acute fracture or traumatic malalignment. No focal soft tissue a bnormality. No foreign bodies. Impression: 1: No acute bone or joint abnormality. 2: Mild osteoarthritis of the right hip. Reviewed, dictated and finalized at location B. UP / OPERATOR Impression: 1: No acute bone or joint abnormality. 2: Mild osteoarthritis of the right hip. Impression: 1: No acute bone or joint abnormality. 2: Mild osteoarthritis of the right hip.
== END 2022-07-03 14:31 | disposition home or self-care (01) ==
LOC: ANHLAB 14:32
PROVIDERS: PCP Family Medicine; Visit Provider Family Medicine
DX: M16.11 Unilateral primary osteoarthritis, right hip (principal)
CPT/HCPCS: 73502; 73552

== ENCOUNTER 2022-11-06 08:13 | Outpatient (CLI) | payer OTHER, SELFPAY ==
--- NOTE | ~2022-11-06 | CT_ITS ---
CT of the Abdomen and Pelvis: Indication: Hematuria Technique: 2.5 mm axial scans were obtained through the abdomen and pelvis prior to and following in travenous administration of 130 cc of Omnipaque 350. Dose reduction technique was used on this scan b y utilizing automated exposure control and iterative reconstruction technique. The dose-length produc t (DLP) was 1337.14 mGy-cm. Findings: Scans through the lung bases are unremarkable. The liver, spleen, pancreas, gallbladder, adrenals and kidneys are within normal limits. No evidence of aortic aneurysm. No lymphadenopathy. No bowel obstruction or bowel wall thickening. There is no evidence to suggest acute appendicitis. Images through the pelvis were performed. Urinary bladder unremarkable. Small right ovarian cyst note d. No other adnexal mass seen. No ascites. Bilateral L5 pars interarticularis defects are present, wi th 7 mm anterolisthesis of L5 over S1. Impression: No etiology for hematuria identified. Bilateral L5 pars interarticularis defects, with grade 1 anterolisthesis of L5 over S1. Reviewed, dictated and finalized at [facility]. Impression: No etiology for hematuria identified. Bilateral L5 pars interarticularis defects, with grade 1 anterolisthesis of L5 over S1.
[2022-11-06 08:44] LABS: Estimated Glomerular Filt Rate > 60
== END 2022-11-06 08:14 | disposition home or self-care (01) ==
PROVIDERS: PCP Family Medicine; Visit Provider Nurse Practitioner
DX: R31.0 Gross hematuria (principal)
CPT/HCPCS: 74178; Q9967

== ENCOUNTER 2023-11-11 13:28 | Emergency (ER) | payer OTHER, SELFPAY ==
[2023-11-11 13:30] VITALS: BP 140/97; PULSE 93; RESP 14; TEMP 36.6; O2SAT 98
--- NOTE | 2023-11-11 13:43 | ED.FEMALEGU ---
HPI - Female Genitourinary General Chief complaint: Urogenital-Female Stated complaint: UTI symptoms Time Seen by Provider: 11/11/23 13:43 Related Data Home Medications Medication Instructions Recorded Confirmed alprazolam 0.25 mg tablet 0.25 mg PO TID PRN Anxiety 01/02/20 11/24/21 amitriptyline 25 mg tablet 25 mg PO HS sleep 01/02/20 11/24/21 atorvastatin 40 mg tablet 40 mg PO DAILY hypercholesterolemia 01/02/20 11/24/21 bupropion HCl 150 mg 24 hr tablet, 150 mg PO DAILY depression 01/02/20 11/24/21 extended release citalopram 40 mg tablet 40 mg PO HS sleep 01/02/20 11/24/21 docusate sodium 100 mg capsule 100 mg PO DAILY 01/02/20 11/24/21 (DOK) gabapentin 300 mg capsule 300 mg PO DAILY 01/02/20 11/24/21 lisinopril 5 mg tablet 5 mg PO HS HTN 01/02/20 11/24/21 mirtazapine 30 mg tablet 30 mg PO HS 01/02/20 11/24/21 potassium chloride 10 mEq 40 meq PO BID 01/02/20 11/24/21 tablet,extended release Allergies Allergy/AdvReac Type Severity Reaction Status Date / Time spironolactone AdvReac Mild Rash Verified 11/11/23 13:44 [facility] Past Medical History Medical History Cancer of left breast 2014treated with radiation therapy Hypercholesterolemia Hypertension Kidney stones 2015 Nonischemic cardiomyopathy noted on trans esophageal echocardiogram August 2018 with severe mitral valve regurgitation EF of 25% Surgical History Surgical History History of cardiac catheterization with no significant coronary artery disease noted August 2018 S/P mitral valve clip implantation Status post left breast lumpectomy Family History Family History Mother Cerebrovascular accident Father AICD (automatic cardioverter/defibrillator) present RADHA (obstructive sleep apnea) Chronic obstructive pulmonary disease Social History Social History Social History: The patient lives with her fiance and her 24-year-old daughter who has Down syndrome. 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 She used to smoke a 3rd of a pack of cigarettes per day but quit smoking in August of 2018. She denies any alcohol use or illicit substance use. Smoking packs per day: 0.5 Smoking cigarettes per day: 10.0 Years smoked: 22 Smoking pack-years: 11.00 Smoking status: Former smoker Tobacco type: cigarettes Second hand tobacco smoke exposure: No Smoking end date: 09/01/18 Alcohol intake: never Substance use: never Gender identity (if verbalized by the patient): Female Spiritual care concerns: No Course Vital Signs Vital signs: Vital Signs Temperature 36.6 C 11/11/23 13:30 Pulse Rate 93 11/11/23 13:30 Respiratory Rate 14 11/11/23 13:30 Blood Pressure 140/97 H 11/11/23 13:30 Pulse Oximetry 98 11/11/23 13:30 Oxygen Delivery Room Air 11/11/23 13:30 Temperature 36.6 C 11/11/23 13:30 Pulse Rate 93 11/11/23 13:30 Respiratory Rate 14 11/11/23 13:30 Blood Pressure 140/97 H 11/11/23 13:30 Pulse Oximetry 98 11/11/23 13:30 Oxygen Delivery Room Air 11/11/23 13:30 MDM - Female Genitourinary MDM Narrative Medical decision making narrative: Differential diagnosis include urinary tract infection, urethritis, Urinalysis today showed infection Patient discharged on Macrobid and Pyridium Differential Diagnosis Differential diagnosis: Likely urinary tract infection Lab Data Labs: Lab Results 11/11/23 Range/Units 13:50 Urine Color Yellow (Yellow) Urine Appearance Cloudy H (Clear) Urine pH 6.0 (5.0-9.0) Ur Specific [place] 1.027 (1.001-1.035) Urine Protein Negative (Negative) mg/dL Urine Glucose (UA) 3+ H (Negative) mg/dL Urine Ketones Negative (Negative) mg/d
[2023-11-11 14:12] LABS: Appearance Urine Cloudy (Clear); Bacteria Urine Rare /hpf; Bilirubin Urine Negative (Negative); Blood Urine 2+ (Negative); Color Urine Yellow (Yellow); Glucose Urine UA 3+ mg/dL (Negative); Ketones Urine Negative (Negative); Leukocyte Esterase Ur 1+ LEU/UL (Negative); Nitrate Urine Negative (Negative); Non Pathogenic Casts 0-2; Protein Urine Negative (Negative); RBC Urine 21-50 /hpf (0-2); Specific Grav Ur 1.027 (1.001-1.035); Squamous Epithelial Cell Urine Few /hpf (Few); Urobilinogen Urine 0.2 mg/dL (<2.0); WBC Urine >100 /hpf (0-3)
[2023-11-11 14:18] LABS: Add Urine Microscopic? YES
[2023-11-11 14:54] VITALS: BP 130/88; PULSE 90; RESP 15; O2SAT 98
== END 2023-11-11 14:56 | disposition home or self-care (01) ==
PROVIDERS: Emergency Provider Emergency Medicine; PCP Family Medicine
DX: N39.0 Urinary tract infection, site not specified (principal); E78.00 Pure hypercholesterolemia, unspecified; I10 Essential (primary) hypertension; I42.8 Other cardiomyopathies; I34.0 Nonrheumatic mitral (valve) insufficiency; Z85.3 Personal history of malignant neoplasm of breast; Z92.3 Personal history of irradiation; Z87.442 Personal history of urinary calculi; Z87.891 Personal history of nicotine dependence; Z79.899 Other long term (current) drug therapy
CPT/HCPCS: 81001; 87077; 87086; 87088; 87186; 99283

== ENCOUNTER 2024-02-14 08:38 | Outpatient (CLI) | payer OTHER, SELFPAY ==
--- NOTE | ~2024-02-14 | MM_ITS ---
EXAMINATION: MM screening raisa BI w lance HISTORY: Personal history of left-sided breast cancer post lumpectomy presents for screening bilatera l mammography. TECHNIQUE: Craniocaudal and mediolateral oblique 3-D tomosynthesis images were obtained and synthetic 2-D images were generated. CAD analysis was submitted and interpreted. COMPARISON: No prior mammogram is available for comparison at this institution. BREAST PARENCHYMAL COMPOSITION: There are scattered areas of fibroglandular density. FINDINGS: Postoperative change within the left breast, consistent with patient's history. Punctate calcifications are detected bilaterally, benign in appearance. Additional punctate calcifications are present, vascular in origin. Multiple clips within the left axilla, consistent with patient's history. No suspicious microcalcifications, unexpected architectural distortion, discrete masses or significan t asymmetry. IMPRESSION: 1. No mammographic evidence of malignancy. 2. Recommend routine screening mammography in one year. BI-RADS Category 2: Benign finding(s). If prior imaging does become available, comparisons would be performed. Reviewed, dictated and finalized at location A.
== END 2024-02-14 08:39 | disposition home or self-care (01) ==
LOC: ANHIMG 08:41
PROVIDERS: PCP Family Medicine; Visit Provider Family Medicine
DX: Z12.31 Encounter for screening mammogram for malignant neoplasm of breast (principal)
CPT/HCPCS: 77063; 77067

== ENCOUNTER 2025-04-03 20:23 | Emergency (ER) | payer OTHER, SELFPAY ==
--- NOTE | ~2025-04-03 | XR_ITS ---
XR foot LT min 3V 04/03/2025 20:57 INDICATION: Left foot pain after injury PROCEDURE: 3 views left foot COMPARISON: No prior studies for comparison. FINDINGS: Fracture, dislocation or subluxation is not identified. Lisfranc joint intact. The soft tissues appear within normal limits. No foreign bodies are identified. IMPRESSION: 1: NO ACUTE BONE OR JOINT ABNORMALITY IDENTIFIED. Reviewed, dictated and finalized at location O. [employer]
--- OUTSIDE RECORDS SUMMARY | 2025-04-03 20:25 | XMS_ITS | Encounter Summary ---
Author Organization [facility] Address [address] [place] [address] Care Team Providers Care Kennel Helper Name Role Phone Sabino Powell MD Unavailable [phone] Erich Hair Primary Care Provider Unavailab le Encounter Details Date Type Department Care Team (Late st Contact Info) Description 03/16/2025 Results Follow-Up [facility] - Cardiology [address] [facility], [facility] [address] [place] [id number] Mason Paige RN Social History Tobacco Use Types Packs/Day Years Used Date Smoking Tobacco: Former Cigarettes 0.3 20 0 09/01/1998 - 09/01/2018 Smokeless Tobacco: Never Alcohol Use Standard Drinks/Week Comments Never 0 (1 standard drink = 0.6 oz pur e alcohol) AUDIT-C Answer Date Recorded Q1: How often do you have a drink containing alc ohol? Never 04/21/2020 Average Number of Drinks Not on file 020 Frequency of Binge Drinking Not on file 04/11 Comments No Sex and Gender Information Value Date Recorded Sex Assigned at Not on file Legal Sex Female 7:42 PM MANAGER TRANSFER Gender Identity Not on file Sexual Orientation Not on file documented as of this encounter Functional Status * Is person deaf or have serious hearing difficulty? Answer Date of Assessment Author No 07/19/2020 4:46 PM MANAGER TRANSFER Concepcion Thayer RN * Is person blind or have serious difficulty seeing? Answer Date of Assessment Author No 07/19/2020 4:46 PM MANAGER TRANSFER Concepcion Thayer RN * Does person have serious difficulty walking/climbing stairs? Answer Date of Assessment Author No 07/19/2020 4:46 PM MANAGER TRANSFER Concepcion Thayer RN * Does person have difficulty dressing/bathing? Answer Date of Assessment Author No 07/19/2020 4:46 PM Concepcion Schmitz RN * Does person have difficulty doing errands alone? Answer Date of Assessment Author No 07/19/2020 4:46 PM Concepcion Schmitz RN documented as of this encounter Mental Status * Does person have difficulty concentrating/remembering/making decisions? Answer Entry Date Author No 07/19/2020 4:46 PM Concepcion Schmitz RN documented in this encounter Plan of Treatment Upcoming Encounters Date Type Department Care Team (Late st Contact Info) Description 06/16/2025 4:00 PM MANAGER TRANSFER Office Visit [facility] - Cardiology [address] [facility] [address] [place] [address] Christine Parnell MD [address] [place] [address] documented as of this encounter Visit Diagnoses Not on filedocumented in this encounter Care Teams Kennel Helper Relationship Specialty Start Date End Date Erich Hair Update Information PCP - General 01/09/22 Sabino Powell MD Cap Inspector Cardiovascular Disease 09/18/18 documented as of this encounter
--- OUTSIDE RECORDS SUMMARY | 2025-04-03 20:25 | XMS_ITS | Encounter Summary ---
Author Organization [facility] Address [address] [place] [address] Care Team Providers Care Grooming Assistant Name Role Phone Bruno Akers MD Primary Care Provider [phone] Bruno Akers MD Primary Care Provider [phone] Alva Stroud MD Primary Care Provider Unavailabl e Luanne, Alva BARBOSA Primary Care Provider Unavailabl e LuanneAlva MD Primary Care Provider Unavailabl e Luanne, Alva BARBOSA Primary Care Provider Unavailabl e Luanne, Alva BARBOSA Primary Care Provider Unavailabl e Gerry Shah MD Unavailable [phone] Wade Oakes MD Unavailable [phone] Noris Wray MD Unavailable Unavailabl e Marquise Ren MD Unavailable [phone] Encounter Details Date Type Department Care Team (Late st Contact Info) Description 04/12/2013 Abstract [facility] CONVERSION [address] [place] [address] , Generic Conversion, Social History Tobacco Use Types Packs/Day Years Used Date Smoking Tobacco: Never Assessed Comments Unknown Sex and Gender Information Value Date Recorded Sex Assigned at Not on file Legal Sex Female 8:25 PM CDT Gender Identity Not on file Sexual Orientation Not on file documented as of this encounter Plan of Treatment Not on file documented as of this encounter Visit Diagnoses Not on filedocumented in this encounter Care Teams Grooming Assistant Relationship Specialty Start Date End Date Bruno Akers MD PCP - General 06/25/16 Bruno Akers MD PCP - General 05/25/15 06/24/16 Alva Stroud MD PCP - General 01/12/15 05/24/15 Alva Stroud MD PCP - General 10/25/14 01/11/15 Alva Stroud MD PCP - General 10/17/14 10/24/14 Alva Stroud MD PCP - General 08/23/14 10/16/14 Alva Stroud MD PCP - General 05/17/14 08/22/14 Gerry Shah MD [facility]. [address] [address] [place] Field Sampling Technician INTERVENTIONAL CARDIOLOGY 06/03/18 Wade Oakes MD [address] [facility] [place] [facility] [address] [place] [address] Consulting Physician CARDIOVASCULAR DISEASE 02/03/20 Noris Wray MD [address] [facility] [address] [place] [address] Consulting Physician CARDIOLOGY 02/03/20 Marquise Ren MD [address] [place] [id number] Consulting Physician OBGYN 02/27/20 02/27/20 documented as of this encounter
--- OUTSIDE RECORDS SUMMARY | 2025-04-03 20:25 | XMS_ITS | Encounter Summary ---
Author Organization [facility] Health Address [address] [facility] [place] [address] Care Team Providers Care Circuit Rider Name Role Phone Sabino Powell MD Unavailable Erich Hair Primary Care Provider Unavailab le Encounter Details Date Type Department Care Team (Late st Contact Info) Description 02/02/2025 Telephone [facility] - Cardiology [address] [facility] [address] [place] [address] Christine Parnell MD [address] [place] [address] Social History Tobacco Use Types Packs/Day Years [...] on file Legal Sex Female 7:42 PM QUALITY CONTROL DIRECTOR Gender Identity Not on file Sexual Orientation Not on file documented as of this encounter Functional Status * Is person deaf or have serious hearing difficulty? Answer Date of Assessment Author No 07/19/2020 4:46 PM Concepcion Schmitz RN * Is person blind or have serious difficulty seeing? Answer Date of Assessment Author No 07/19/2020 4:46 PM Concepcion Schmitz RN * Does person have serious difficulty walking/climbing stairs? Answer Date of Assessment Author No 07/19/2020 4:46 PM Concepcion Schmitz RN * Does person have difficulty dressing/bathing? [...] Concepcion Schmitz RN documented in this encounter Miscellaneous Notes * Telephone Encounter - Shayy Gonzales - 02/02/2025 10:30 AM CDT Reason for call: Patient is requesting a call back regarding her test results and questions she hasregarding her medication Patient Call Back number: [phone] documented in this encounter Plan of Treatment Upcoming Encounters Date Type Department Care Team (Late st Contact Info) Description 06/16/2025 4:00 PM QUALITY CONTROL DIRECTOR Office Visit [facility] - Cardiology [address] [facility] [address] [place] [address] Christine Parnell MD [address] [place] [address] documented as of this encounter Visit Diagnoses Not on filedocumented in this encounter Care Teams Circuit Rider Relationship Specialty Start Date End Date Erich Hair Update Information PCP - General 01/09/22 Sabino Powell MD Electric Truck Operator Cardiovascular Disease 09/18/18 documented as of this encounter
--- OUTSIDE RECORDS SUMMARY | 2025-04-03 20:25 | XMS_ITS | Encounter Summary ---
Author Organization [facility] Address [address] [place] [address] Care Team Providers Care Sequins Spooler Name Role Phone Bruno Akers MD Primary Care Provider [phone] Bruno Akers MD Primary Care Provider [phone] Alva Stroud MD Primary Care Provider Unavailabl e Luanne, Alva BARBOSA Primary Care Provider Unavailabl e LuanneAlva MD Primary Care Provider Unavailabl e Luanne, Alva BARBOSA Primary Care Provider Unavailabl e Luanne, Alva BARBOSA Primary Care Provider Unavailabl e Gerry Shah MD Unavailable [phone] Wade Oakes MD Unavailable [phone] Noris Wray MD Unavailable Unavailabl e Marquise Ren MD Unavailable [phone] Encounter Details Date Type Department Care Team (Late st Contact Info) Description 01/05/2013 Abstract [facility] CONVERSION [address] [place] [address] , Generic Conversion, Social History Tobacco Use [...] on filedocumented in this encounter Care Teams Sequins Spooler Relationship Specialty Start Date End Date Bruno Akers MD PCP - General 06/25/16 Bruno Akers MD PCP - General 05/25/15 06/24/16 Avla Stroud MD PCP - General 01/12/15 05/24/15 Alva Stroud MD PCP - General 10/25/14 01/11/15 Alva Stroud MD PCP - General 10/17/14 10/24/14 Alva Stroud MD PCP - General 08/23/14 10/16/14 Alva Stroud MD PCP - General 05/17/14 08/22/14 Gerry Shah MD [facility]. [address] [address] [place] Outdoor Illuminating Engineer INTERVENTIONAL CARDIOLOGY 06/03/18 Wade Oakes MD [address] [facility] [address] [place] [address] Consulting Physician CARDIOVASCULAR DISEASE 02/03/20 Noris Wray MD [address] [facility] [address] [place] [address] Consulting Physician CARDIOLOGY 02/03/20 Marquise Ren MD [address] [place] [address] Consulting Physician OBGYN 02/27/20 02/27/20 documented as of this encounter
--- OUTSIDE RECORDS SUMMARY | 2025-04-03 20:25 | XMS_ITS | Clinical Summary ---
Author Organization [facility] Address [address] [place] [address] Care Team Providers Care Button Riveter Name Role Phone Bruno Akers MD Primary Care Provider [phone] Gerry Shah MD Unavailable [phone] Wade Oakes MD Unavailable [phone] Noris Wray MD Unavailable Unavailabl e Allergies Active Allergy Reactions Criticality Noted Date Comments Spironolactone Rash Medium 10/07/2018 Medications anastrozole 1 MG tablet Take 1 tablet by mouth daily. 5 Active aspirin 81 MG chewable tablet Chew 1 tablet (81 mg total) by mouth daily. 30 tablet 9 Active digoxin 0.25 MG tablet Take 0.25 mg by mouth daily. 9 Active potassium chloride CR 10 MEQ Tab CR tablet Take 40 mEq by mouth 2 (two) times daily. 0 Active ivabradine 5 MG tablet Take 2.5 mg by mouth 2 (two) times a day. 0 Active amiodarone (PACERONE) 200 MG tablet TK 1 T PO D AT 8AM 0 Active bumetanide 1 MG tablet TK 1 T PO BID 0 Active eplerenone 25 MG tablet Take 25 mg by mouth daily. 0 Active metoprolol succinate ER 25 MG 24 hr tablet Take 50 mg by mouth. 0 Active ALPRAZolam 0.25 MG tabletIndication s:Generalized anxiety disorder,Insomni a, unspecified type Take 1 tablet (0.25 mg total) by mouth 2 (two) times daily as needed for Anxiety. 45 tablet 5 0 Active amitriptyline 25 MG tabletIndication s:Insomnia, unspecified type Take 1 tablet (25 mg total) by mouth nightly at bedtime. 90 tablet 1 0 Active buPROPion XL 150 MG 24 hr tabletIndication s:Mild episode of recurrent major depressive disorder Take 1 tablet (150 mg total) by mouth daily. 90 tablet 1 0 Active citalopram 40 MG tabletIndication s:Generalized anxiety disorder Take 1 tablet (40 mg total) by mouth daily. 90 tablet 1 0 Active Fluocinolone Acetonide 0.01 % OilIndications:L esion of external ear canal, left Instill 5 drops in the affected ear twice daily for 5 to 7 days, then 2-3 times per week as needed. 20 mL 5 0 Active gabapentin 300 MG capsuleIndicatio ns:Sensory peripheral neuropathy Take 1 capsule (300 mg total) by mouth 3 (three) times daily. 270 capsule 1 0 Active mirtazapine 30 MG tabletIndication s:Mild episode of recurrent major depressive disorder,Insomni a, unspecified type Take 1 tablet (30 mg total) by mouth every evening. 90 tablet 1 0 Active docusate sodium (DOK) 100 MG capsuleIndicatio ns:Constipation TAKE 2 CAPSULES BY MOUTH DAILY AT BEDTIME 180 capsule 1 0 Active atorvastatin 40 MG tabletIndication s:Hyperlipidemia Take 1 tablet (40 mg total) by mouth daily. 90 tablet 1 Active Active Problems Problem Noted Date Diagnosed Date Status post implantation of mitral valve leaflet clip 04/10/2019 Status post pericardiocentesis 04/10/2019 Gastroesophageal reflux disease with esophagitis 04/09/2019 Localized soft tissue swelling 12/15/2018 Overview (12/28/2018): Overview: Of left neck Last Assessment & Plan: Ultrasound of soft tissue swelling of left neck/clavile, lymph node. Bruit of left carotid artery 12/15/2018 Overview (12/28/2018): Last Assessment & Plan: Carotid duplex. NICM (nonischemic cardiomyopathy) 11/11/2018 Overview (12/28/2018): Last Assessment & Plan: Chronic Systolic Heart [id number] class II-III symptoms. Stable. Pt appears euvolemic in clinic today. She endorses and is orthostatic in clinic today. Hold diuretics and check BMP. Coninue Coreg 12.5mg BID, Digoxin, and lisiopri 5 mg. Pt will call with symptoms on and may consider resuming lasix at 10mg BID. If repeat BMP ok in one week, plan to add aldactone 12.5mg daily. Follow up in one month to further maximized GDMT. [facility] ECHO and possible EP consult for ICD. Assessment & Plan (12/28/2018 2:07 PM CDT): See chronic systolic congestive heart failure, above. Chronic systolic congestive heart failure 2018 Assessment & Plan (12/28/2018 2:06 PM CDT): Patient continues to follow with cardiology for management, but findings today suggest increased diastolic failure. No pedal edema, but findings suspicious for abdominal sequestration. Obtain imaging studies as ordered. Non-rheumatic mitral regurgitation 11/11/2018 Overview (04/09/2019): Last Assessment & Plan: Since we first evaluated her for mitral regurgitation and her significant LV dysfunction - we have attempted to maximize guideline directed medical therapy to support improved cardiac output. Our hopes were to try and see a decrease in LV dimension and a decrease in symptoms. Unfortunately - we have run into the following: - significant intolerance to multiple medications (e.g. Spironolactone) - inability to uptitrate carvedilol above 12.5 mg BID - continued NYHA Class III heart failure symptoms: she cannot walk down an aisle in the grocery store without significant shortness of breath, has had PND episodes. Echocardiogram performed today continues to show significant LV dilation, marked depression in LV function, and severe MR. We discussed the following with her and her family today: 1. She doesn't have many very good options to improve her symptoms. Surgery would be a high risk procedure without proven benefit. She doesn't qualify for VISITING NURSE therapy. She can't tolerate higher doses of medications. 2. We are not convinced that she will be able to benefit from a MitraClip procedure based upon her severe LV dilation - her disease process may be too far progressed at this point 3. Given no real alternative therapies, it would be reasonable to attempt a MitraClip procedure. We are very concerned about the LV being able to tolerate the increase in afterload that reducing her MR would produce. We will be prepared to provide inotropes and/or mechanical LV support should those be needed. 4. If the MitraClip procedure is not tolerated or provides no symptomatic improvement - she would have to consider LVAD / Transplant evaluation. Chronic night sweats 05/13/2018 Assessment & Plan (05/16/2018 11:37 AM TANK FURNACE OPERATOR): Likely multifactorial, certainly anastrozole plays a part of this, but patient also takes other medications associated with increased night sweats, including tricyclic antidepressant, SSRIs, bupropion. Presently, her oncologist has her taking gabapentin, 300 mg up to 3 times daily, but she has noted increased somnolence with 3 times daily dosing. I have encouraged her to consider taking this at bedtime, and increasing that dose even up to 900 mg to see if that gives her symptomatic relief and not daytime drowsiness. Patient voices understanding and agreement with plan. Malignant neoplasm of breast 09/05/2017 Assessment & Plan (05/16/2018 11:31 AM TANK FURNACE OPERATOR): Care continues under guidance of Dr. Pedersen, with yearly follow-up with her breast surgeon. Continues on anastrozole. Generalized anxiety disorder 01/23/2017 Overview (05/07/2018): Transitioned From: Anxiety Assessment & Plan (12/28/2018 2:10 PM CDT): Stable on current dosing of citalopram, alprazolam, amitriptyline and mirtazapine in addition to bupropion. No treatment change at this time. Assessment & Plan (05/16/2018 11:29 AM TANK FURNACE OPERATOR): Continues on mirtazapine, citalopram and alprazolam with control of symptoms. [place] Prescription Monitoring Program website reviewed, no indication of misuse or abuse. Will renew today. Insomnia 01/23/2017 Assessment & Plan (05/16/2018 11:32 AM TANK FURNACE OPERATOR): Continued use of mirtazapine, amitriptyline and alprazolam at times for control of her symptoms. I did briefly review the association of amitriptyline with the increased, though slight, risk of future dementia. I have encouraged her to halve her present dose, to see if that still provides adequate relief of her symptoms. We could continue to work toward titration off of this medication. Will readdress at her follow-up. Mild episode of recurrent major depressive disor beatrice 01/23/2017 Overview (05/07/2018): Transitioned From: Depression Assessment & Plan (12/28/2018 2:11 PM CDT): See generalized anxiety disorder, above. Assessment & Plan (05/16/2018 11:30 AM TANK FURNACE OPERATOR): Well-controlled on current dosing of citalopram, bupropion, alprazolam, and mirtazapine. No change to present treatment. Checking routine lab work today. BMI 30.0-30.9,adult 05/22/2016 Erythrocytosis 02/20/2016 Assessment & Plan (05/16/2018 11:28 AM TANK FURNACE OPERATOR): Check CBC-likely in part related to chronic smoking. Nephrolithiasis 11/01/2015 Medication management 06/22/2015 Overview (05/07/2018): Transitioned From: care home use of drug Assessment & Plan (12/28/2018 2:11 PM CDT): Await lab results from [facility]. Sensory peripheral neuropathy 06/22/2015 Assessment & Plan (12/28/2018 2:05 PM CDT): Stable at this time on current dosing of gabapentin with some relief of symptoms. No change to present therapy. Assessment & Plan (05/16/2018 10:56 AM TANK FURNACE OPERATOR): Use of gabapentin for symptomatic relief. Skin lesion of chest wall 06/22/2015 Constipation 08/24/2012 Hyperlipidemia 04/14/2012 Assessment & Plan (05/16/2018 11:27 AM TANK FURNACE OPERATOR): Tolerating a atorvastatin, will obtain fasting lipid profile at her earliest convenience-not fasting today. Essential hypertension 03/02/2012 Assessment & Plan (12/28/2018 2:07 PM CDT): Well controlled. 1. Medication: continue current medication regimen unchanged, encouraged home monitoring, call for persistent elevations at or above 130/85. 2. Regular aerobic exercise -to have patient check with cardiology regarding indications for cardiopulmonary rehab. 3. Recheck in 6 months, sooner should new symptoms or problems arise. Assessment & Plan (05/16/2018 10:56 AM TANK FURNACE OPERATOR): Stable on present dosing of lisinopril. Check routine lab work today, with no change in therapy. Resolved Problems Problem Noted Date Diagnosed Date Resolved Date Hemorrhagic pericardial effusion 04/10/2019 07/16/2019 Abdominal distention 12/28/2018 019 Assessment & Plan (12/28/2018 2:09 PM CDT): Given patient's history of breast cancer, recent diagnosis of nonischemic cardiomyopathy, along with hepatojugular reflux on examination and increased jugulovenous distention, will obtain contrasted CT scan of the abdomen for a more complete evaluation. Unintended weight gain 12/28/201804/10 Assessment & Plan (12/28/2018 2:12 PM CDT): Findings suspicious for edema. Given increasing abdominal girth, will obtain CT scan as noted above. Increase diuretic to 40 mg once daily in the morning, for the next week. Continue potassium supplementation. Will obtain basic metabolic profile in 1 week. Tachycardia 01/23/2017 04/10/2019 Assessment & Plan (12/28/2018 2:08 PM CDT): Patient remains tachycardic, despite current dosing of carvedilol. Defer to cardiology for additional management. Assessment & Plan (05/16/2018 11:27 AM TANK FURNACE OPERATOR): Mildly tachycardic today. Typically asymptomatic. Will place referral to cardiology today for additional evaluation and input. Certainly, patient may benefit from introduction of a beta-bertha or calcium channel bertha for rate control. Nicotine dependence 01/06/2015 09/15/19 19 Assessment & Plan (05/16/2018 10:55 AM TANK FURNACE OPERATOR): Has tried Chantix with significant psychological side effects. Reports improvement on Wellbutrin, in need of renewal. Immunizations Immunization Administration Dates Next Due Fluzone 6 Months+ Quad (0.5 mL Prefilled Syringe ) 02/02/2020 Influenza (Generic) 02/20/2016 Pneumococcal (Prevnar 13) 02/02/2020 Family History Medical History Relation Comments Cancer Father Hypertension Mother Breast Cancer Paternal Aunt 1 Breast Cancer Paternal Aunt 2 Relation Status Comments Father Mother Paternal Aunt 1 Paternal Aunt 2 Social History Tobacco Use Types Packs/Day Years Used Date Smoking Tobacco: Former Cigarettes Q uit: 09/01/2018 Smokeless Tobacco: Never Tobacco Cessation:Counseling Given: No Alcohol Use Standard Drinks/Week Comments No 0 (1 standard drink = 0.6 oz pur e alcohol) AUDIT-C Answer Date Recorded Frequency of Alcohol Consumption Never 05/13/2018 Average Number of Drinks Not on file 019 Frequency of Binge Drinking Not on file 06/2018 Comments Unknown Sex and Gender Information Value Date Recorded Sex Assigned at Not on file Legal Sex Female 8:25 PM CDT Gender Identity Not on file Sexual Orientation Not on file Occupation Industry Job Start Date Job End Date Not on file Not on file Not on file Not on file Last Filed Vital Signs Vital Sign Reading Time Taken Comments Blood Pressure 120/82 02/02/2020 2:00 PM CDT Pulse 112 02/02/2020 2:00 PM CDT Temperature 37.6 C (99.7 F) 02/02/2020 2:00 PM CDT Respiratory Rate 20 02/02/2020 2:00 PM CDT Oxygen Saturation 98% 02/02/2020 2:00 PM CDT Inhaled Oxygen Concentration - - Weight 77.6 kg (171 lb) 02/02/2020 2:00 PM CDT Height 160 cm (5' 3) 02/02/2020 2:00 PM CDT Body Mass Index 30.29 02/02/2020 2:00 PM CDT Plan of Treatment Health Maintenance Due Date Last Done Comments Cervical Cancer Screening Pa p Smear (Age 30 to 64) Every 3 Years 1961 Colorectal Cancer Screening Colonoscopy (10 Years) 1961 Annual Physical 1964 COVID-19 Vaccine (#1) 1966 DTaP, Tdap and Td Vaccines ( 1 - Tdap) 1980 Cervical Cancer Screening Pa p with HPV Testing (Age 30 to 64) Every 5 Years 1991 Cervical Cancer Screening wi th HPV 1991 Zoster Vaccines (1 of 2) 2011 Mammogram Screening 06/27/2019 06/27/2017, 10/17/2014, 11/19/2013 Pneumococcal Vaccine: 50+ Years (2 of 2 - PPSV23, PCV20, or PCV21) 03/29/2020 02/02/2020 RSV Immunization or 60+ Years (1 - Risk 60-74 years 1-dose series) 2021 Influenza Adult (#1) 2025 02/02/2020, 02/20/2016 Hepatitis C Completed 02/02/2020 Hepatitis A Vaccines Aged Out No long er eligible based on patient's age to complete this topic Meningococcal B Vaccine Aged Out No l onger eligible based on patient's age to complete this topic Meningococcal Vaccine Aged Out No dequan ioana eligible based on patient's age to complete this topic RSV Immunizations Under 20 Months Aged Out No longer eligible b ased on patient's age to complete this topic Procedures Procedure Name Priority Date/Time Associated Diagnosis Comments HEPATITIS C ANTIBODY Routine 02/02/2020 1:40 PM CDT Encounter for hepatitis C screening test for low risk patient MG SCREENING W PETER BLANCA DIGI Routine 06/27/2017 2:36 PM TANK FURNACE OPERATOR Breast screening from Last 3 Months or Most Recently Relevant to Health Maintenance Results * HEPATITIS C ANTIBODY (02/02/2020 1:40 PM CDT) HEPATITIS C AB NON-REACTI VE NON-REACTI VE 02/02/2020 8:13 PM CDT [facility] 02/02/2020 1:40 PM CDT us Bruno Akers MD LABORATORY Final Res ult [facility] [address] [place] [address], [place] [phone] * MG SCREENING W PETER BLANCA DIGI (06/27/2017 2:36 PM TANK FURNACE OPERATOR) Anatomical Region Laterality Modality Breast Bilateral Mammography 06/27/2017 2:36 PM TANK FURNACE OPERATOR Impressions 06/27/2017 2:43 PM TANK FURNACE OPERATOR =====IMPRESSION:===== No mammographic findings suggestive of malignancy. ASSESSMENT: ACR BI-RADS Category 2 - Benign. RECOMMENDATION: 1: Routine screening mammogram bilateral in 1 year COMMENTS: Narrative 06/27/2017 2:43 PM TANK FURNACE OPERATOR EXAMINATION: Digital bilateral screening mammogram with 3-D tomosynthesis EXAM DATE/TIME: 06/27/2017 2:04 PM REASON FOR EXAM: Routine screening. History of left breast cancer COMPARISON: 06/25/2016, 05/25/2015, 10/17/2014, 11/19/2013 TECHNIQUE: Digital screening mammography of both breasts was performed in addition to 3-D Tomosynthesis technique. This study was read with the assistance of a computer-aided detection system. TISSUE DENSITY: The breast tissue contains scattered fibroglandular densities. FINDINGS: No suspicious masses, malignant appearing calcifications, skin thickening or other abnormalities are present. Chronic surgical changes of the left breast. Bilateral breast calcifications are stable. No significant change from the prior exam. Ector Harvey MD MAMMO Final Result from Last 3 Months or Most Recently Relevant to Health Maintenance Insurance [facility] Care Teams Button Riveter Relationship Specialty Start Date End Date Bruno Akers MD PCP - General 06/25/16 Gerry Shah MD [facility] [address] [place] [address] [place] Photogrammetric Compilation Specialist INTERVENTIONAL CARDIOLOGY 06/03/18 Wade Oakes MD [address] [place] [address] Consulting Physician CARDIOVASCULAR DISEASE 02/03/20 Noris Wray MD [address] [place] [address] Consulting Physician CARDIOLOGY 02/03/20
--- OUTSIDE RECORDS SUMMARY | 2025-04-03 20:25 | XMS_ITS | Data Portability ---
Author Organization [facility] Address [address] [place] [address] Care Team Providers Care Tax Investigator Name Role Phone EASTON CLARKAVESH Primary Care Provider Assessment Encounter Date Assessment Date Assessment LastModified by Organization Details LastModified Time 03/04/2022 03/04/2022 healthy female exam/menopaus e patient declined std testing pap done, discussed guidelines mammogram UTD colonoscopy -has referral dexa ordered and encouraged Encouraged weight bearing exercise and 1500mg daily of Calcium with Vitamin D discussed treatment of URIAH from kegels to PT to surgical. pt declines PT and surgical referral. FU 1 year or prn [email or web address] Not available 03/06/2022 10:23:10 04/08/2022 04/08/2022 colpo done with ECC and bx. call with results. likely repap 6 mos. [email or web address] Not available 04/09/2022 09:29:59 10/08/2022 10/08/2022 repap done. unless worse, repap with WWE 6 mos discussed she is too high risk for HRT/estrogen in my opinion. other option would be Effexor, but already on celexa. Will contact her PCP to ask about trying effexor instead of celexa. [email or web address] Not available 10/08/2022 16:06:37 Plan of Treatment Reminders Order Date Submit Date Provider Last Modified By Organization Details Last Modified Time Details Appointments None record ed. Lab None record ed. Referral None record ed. Procedures None record ed. Surgeries None record ed. Imaging None record ed. Medication Orders None record ed. Patient TargetsNo targets recorded. Patient InstructionsNo instructions recorded. Reason for Referral None Reported. Results Created Date Observation Date Name Description Value Unit Range Abnormal Flag Note LastModifiedBy Organization Detail LastModifiedTime 03/04/20 22 03/04/2022 IMAGE GUIDE D PAP AND HPV REGAR DLESS image guided Pap, HPV regardless of Pap result SEE RESULT S BELOW abnormal CASE REPOR T: Cytol ogy Gynec ologi carl Repor t Case: [id number] Autho clair almonte Provi beatrice: Nicki Lee MD Colle cted: 03/04 1602 Order ing Locat ion: [place] Patho logy Recei ava: 03/05 0828 First Scree n: Mag Ramirez ret, CT Patho logis t: Gurvinder Naqvi MD Speci men: Scree marichuy Pap - Image d, Cervi x STATE MENT OF ADEQU ACY: Satis facto ry for evalu ation Trans forma tion zone compo nent prese nt FINAL DIAGN OSIS: Epith elial Cell Abnor malit y, Squam ous Cell: Low Grade Squam ous Intra epith elial Lesio n (LSIL ). Shift in jr sugge stive of bacte rial vagin osis. Elect anabel muñoz d by Gurvinder Naqvi MD on 03/07 at 4:37 PM ----- ----- ----- ----- ----- ----- ----- ----- ----- ----- ----- ----- ----- ----- ----- ----- ----- ---- HPV RESUL TS: HPV mRNA E6/E7 : Posit kervin - HPV mRNA Detec aida HPV GENOT YPE 16 (RATNA) : Not Detec aida HPV GENOT YPE 18/45 (RATNA) : Not Detec aida NOTE: This high risk HPV mRNA assay detec ts fourt een high- risk HPV types (16, 18, 31, 33, 35, 39, 45, 51, 52, 56, 58, 59, 66, 68) witho ut diffe renti ation . This assay can diffe renti ate HPV 16 from HPV 18/45 , but does not diffe renti ate betwe en HPV 18 and HPV 45. A negat kervin HPV 16, 18/45 genot ype assay resul t does not exclu de the possi bilit y of cytol ogic abnor malit ies or of futur e or under lying ANTHONY 1, ANTHONY 3 or cance r. COMME NT: Note: This speci men was revie wed by a Cytot echno logis t and/o r Patho logis t (as indic ated in this repor t) after evalu ation using the Thinp rep Imagi ng Syste m. CLINI CARL INFOR MATIO N: Menst rual Statu s: LMP (if appli cable ): Clini carl Histo ry/Pr eviou s Pap: Type of Neopl christiano (if appli cable ): Signi fican t Clini carl Findi ngs: Other Histo ry: Hormo coty (if appli cable ): SUGGE STED FOLLO W-UP: Follo w up as warra nted, based on curre nt guide lines and indiv idual patie nt consi derat ions. Not Available [facility] Infectious Disease [address], [place], [address], 03/07/2022 17:39:19 04/08/20 22 04/08/2022 SURGI CARL PATHO LOGY surgical pathology SEE RESULT S BELOW CASE REPOR T: Surgi carl Patho logy Repor t Case: [id number] Autho clair almonte Provi beatrice: Nicki Lee MD Colle cted: 04/08 1555 Order ing Locat ion: [place] Patho logy Recei ava: 04/09 0137 Patho logis t: William Mcrae MD Speci mens: A) - Endoc ervix , ECC B) - Cervi x, Cervi carl biops y FINAL DIAGN OSIS: A. Endoc ervix , curet tage: -Ecto cervi x with low-g rade squam ous intra epith elial lesio n (ANTHONY- 1). -No endoc ervic al tissu e prese nt for evalu ation . B. Cervi x, biops y: -Ecto cervi carl mucos a, negat kervin for dyspl christiano. Elect anabel nilsa muñoz d by William Mcrae MD on 04/09 at 1:31 PM ----- ----- ----- ----- ----- ----- ----- ----- ----- ----- ----- ----- ----- ----- ----- ----- ----- ---- COMME NT: The previ ous Pap smear ([id number]) and HPV mRNA test resul ts are noted . CLINI CARL INFOR MATIO N: r87.6 12 MICRO SCOPI C DESCR IPTIO N: A micro scopi c exami natio n was perfo rmed. GROSS DESCR IPTIO N: A. Endoc ervix . The speci men is label ed with the patie nt's name, ally kiseri cs and ECC . Recei ava in forma skip and on a biops y brush is a 0.4 x 0.2 x 0.[address] of minut e white tissu e and mucus . It is submi tted all in one casse tte. Gross ed by Merna Guan on B. Cervi x. The speci men is label ed with the patie nt's name, marilinog more cs and cervi carl biops y. Recei ava in forma skip is a 0.5 cm fragm ent of white -neff tissu e. The entir e speci men is submi tted in one casse tte. Gross ed by Merna Guan on Not Available [facility] (Lab) [address], [place], [address], 04/09/2022 14:34:54 10/09/19 23 10/08/2022 IMAGE GUIDE D PAP AND HPV REGAR DLESS image guided Pap, HPV regardless of Pap result SEE RESULT S BELOW abnormal CASE REPOR T: Cytol ogy Gynec ologi carl Repor t Case: [id number] Autho patamos suzy Provi beatrice: Nicki Lee MD Colle cted: 10/08 1648 Order ing Locat ion: [place] Patho logy Recei ava: 10/09 0725 First Scree n: Gilbert colindres, Leonie Rescr een: DeLnuno a, Judith, CT Speci men: Diagn ostic Pap - Image d, Cervi x STATE MENT OF ADEQU ACY: Satis facto ry for evalu ation Trans forma tion zone compo nent prese nt FINAL DIAGN OSIS: Negat kervin for Intra epith elial Hilaria n or Orlando ceron (NIL) . Shift in jr sugge stive of bacte rial vagin osis. Elect anabel ash awnda d by Judith Velasco, CT on 023 at 10:48 AM ----- ----- ----- ----- ----- ----- ----- ----- ----- ----- ----- ----- ----- ----- ----- ----- ----- ---- HPV RESUL TS: HPV mRNA E6/E7 : Posit kervin - HPV mRNA Detec aida HPV GENOT YPE 16 (RATNA) : Not Detec aida HPV GENOT YPE 18/45 (RATNA) : Not Detec aida NOTE: This high risk HPV mRNA assay detec ts fourt een high- risk HPV types (16, 18, 31, 33, 35, 39, 45, 51, 52, 56, 58, 59, 66, 68) witho ut diffe renti ation . This assay can diffe renti ate HPV 16 from HPV 18/45 , but does not diffe renti ate betwe en HPV 18 and HPV 45. A negat kervin HPV 16, 18/45 genot ype assay resul t does not exclu de the possi bilit y of cytol ogic abnor malit ies or of futur e or under lying ANTHONY 1, ANTHONY 3 or cance r. COMME NT: This speci men was revie wed by a Cytot echno logis t and/o r Patho logis t (as indic ated in this repor t) after evalu ation using the Thinp rep Imagi ng Syste m. CLINI CARL INFOR MATIO N: Menst rual Statu s: LMP (if appli cable ): Clini carl Histo ry/Pr eviou s Pap: Type of Neopl christiano (if appli cable ): Signi fican t Clini carl Findi ngs: Other Histo ry: Hormo coty (if appli cable ): PAP EDUCA HENRY L NOTE: The Pap Test is a scree marichuy test with an inher ent false negat kervin rate. Liqui d-bas ed sampl ing may decre ase, but will not elimi perla, false negat kervin resul ts. A negat kervin resul t does not precl ude the prese nce and/o r devel opmen t of disea se, since the prese nce of abnor mal cells in the sampl e depen ds on the locat ion of the lesio n and sampl ing techn ique. Cande nued regul ar scree marichuy is the best metho d of cance r preve ntion . If repor aida cytol ogic findi ng do not corre late with physi carl and/o r histo rical findi ngs, furth er inves tigat ion is recom priscilla d, as clini esteban greenberg nted. Not Available [facility] (Lab) [address], [place], [address], 10/11/2022 16:03:15 04/17/20 23 04/17/2023 IMAGE GUIDE D PAP AND HPV REGAR DLESS image guided Pap, HPV regardless of Pap result SEE RESULT S BELOW CASE REPOR T: Cytol ogy Gynec ologi carl Repor t Case: [id number] Autho clair almonte Provi beatrice: Beba Gold, HAND SUTURE WINDER Colle cted: 04/17 1555 Order ing Locat ion: [place] Patho [place]y Recei ava: 04/18 0612 First Scree n: Parker Marquez, CT Rescr een: Laine sim, Pavan harvey, CT Speci men: Scree marichuy Pap - Image d, Cervi x STATE MENT OF ADEQU ACY: Satis facto ry for evalu ation Trans forma tion zone compo nent prese nt FINAL DIAGN OSIS: Negat kervin for Intra epith elial Lesio n or Orlando ceron (NIL) . Elect anabel ash wanda d by Laine sim, Pavan harvey, CT on 04/22 at 6:11 AM ----- ----- ----- ----- ----- ----- ----- ----- ----- ----- ----- ----- ----- ----- ----- ----- ----- ---- HPV RESUL TS: HPV mRNA E6/E7 : No HPV mRNA Detec aida NOTE: This high risk HPV mRNA assay detec ts fourt een high- risk HPV types (16, 18, 31, 33, 35, 39, 45, 51, 52, 56, 58, 59, 66, 68) witho ut diffe renti ation . COMME NT: Slide scree jose kev dean due to rejec tion by the Thinp rep Imagi ng Syste m. CLINI CARL INFOR MATIO N: Menst rual Statu s: LMP (if appli cable ): Clini carl Histo ry/Pr eviou s Pap: Type of Neopl christiano (if appli cable ): Signi fican t Clini carl Findi ngs: Other Histo ry: Hormo coty (if appli cable ): PAP EDUCA HENRY L NOTE: The Pap Test is a scree marichuy test with an inher ent false negat kervin rate. Liqui d-bas ed sampl ing may decre ase, but will not elimi perla, false negat kervin resul ts. A negat kervin resul t does not precl ude the prese nce and/o r devel opmen t of disea se, since the prese nce of abnor mal cells in the sampl e depen ds on the locat ion of the lesio n and sampl ing techn ique. Cande nued regul ar scree marichuy is the best metho d of cance r preve ntion . If repor aida cytol ogic findi ng do not corre late with physi carl and/o r histo rical findi ngs, furth er inves tigat ion is recom priscilla d, as clini esteban greenberg nted. Not Available [facility] (Lab) [address], [place], [address], 04/22/2023 07:15:39 Result Notes None recorded. Problems Name Problem SNOMED Code Status Onset Date Resolution Date Notes Provider Name and Address Organization Details Recorded Time Female urinary stress incontinen ce [id number] Active 2021 Nicki Serrato MD [address], [place], [address], [facility] 2 14:25:54 History of malignant neoplasm of breast 806945125 Active 2021 left Nicki Serrato MD [address], [place], [address], [facility] 2 14:26:11 Anticoagul ant therapy Active 2021 Nicki Serrato MD [address], [place], [address], [facility] 2 14:26:39 Mechanical heart valve replacemen t Active 2021 Nicki Serrato MD [address], [place], [address], [facility] 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 2 09:29:35 Problem Notes None recorded. Procedures Surgical History Date Name Laterality Status Provider Name and Address Organization Details Recorded Time 04/08/20 22 Colposcopy completed Nicki Serrato MD [address], [place], [address], [facility] 04/09/2022 09:29:26 02/10/20 22 Date of Last Mammogram completed [facility] 03/04/2022 14:11:14 06/16/19 21 heart valve replacement completed Nicki Serrato MD [address], [place], [address], [facility] 03/04/2022 14:17:37 05/12/19 14 lumpectomy of right breast completed [facility] 03/04/2022 14:18:25 05/12/19 14 excision of lymph node completed [facility] 03/04/2022 14:18:19 Endometrial Ablation completed [facility] 03/04/2022 14:18:34 Imaging Results None recorded. Procedure Notes None recorded. Medical Equipment None Reported. Allergies Allergen ID Allergen Name Allergen Category Reaction Reaction Severity Criticality Documentation Date Start Date Code Code System Note Provider Name and Address Organization Details Recorded Time 36276 spironola ctone medicatio n Not available Not available Not available 03/04/2022 9997 RxNorm [facility] 14:11:46 Medications Name Sig Start Date Stop Date Status Note LastModified by Organization Details LastModified Time cyclobenzap rine 10 mg tablet TAKE 1 TABLET BY MOUTH EVERY 12 HOURS NEEDED active Not Available Not Available No t Available atorvastati n 40 mg tablet 04/17 completed Not Available Not Available Not Available atorvastati n 80 mg tablet TAKE 1 TABLET BY MOUTH EVERY DAY AT BEDTIME active Not Available Not Available No t Available citalopram 40 mg tablet TAKE 1 TABLET BY MOUTH EVERY MORNING active Not Available Not Available No t Available warfarin 7.5 mg tablet TAKE 1 TABLET BY MOUTH EVERY DAY active Not Available Not Available No t Available metoprolol succinate ER 200 mg tablet,exte nded release 24 hr TAKE 1 TABLET BY MOUTH EVERY DAY active Not Available Not Available No t Available phenazopyri dine 200 mg tablet TAKE 1 TABLET BY MOUTH EVERY 8 HOURS FOR 5 DAYS NEEDED active Not Available Not Available No t Available metoprolol succinate ER 100 mg tablet,exte nded release 24 hr TAKE 1 TABLET BY MOUTH EVERY DAY active Not Available Not Available No t Available Debrox 6.5 % ear drops active Not Available Not Available Not Available ciprofloxac in 250 mg tablet TAKE 1 TABLET BY MOUTH EVERY 12 HOURS FOR 7 DAYS 04/17 completed Not Available Not Available Not Available ciprofloxac in 500 mg tablet TAKE 1 TABLET BY MOUTH EVERY 12 HOURS FOR 5 DAYS DIRECTED 10/08 completed Not Available Not Available Not Available tramadol 50 mg tablet TAKE 1 TABLET BY MOUTH EVERY 8 HOURS FOR 7 DAYS NEEDED active Not Available Not Available No t Available alprazolam 0.25 mg tablet active Not Available Not Available Not Available amitriptyli ne 25 mg tablet active Not Available Not Available Not Available clindamycin 1 % topical gel APPLY THIN LAYER TOPICALLY TO THE AFFECTED AREA TWICE DAILY active Not Available Not Available No t Available cephalexin 500 mg capsule TAKE 1 CAPSULE BY MOUTH THREE TIMES DAILY FOR 7 DAYS DIRECTED 10/08 completed Not Available Not Available Not Available mirtazapine 30 mg tablet TAKE 1 TABLET BY MOUTH EVERY DAY AT BEDTIME active Not Available Not Available No t Available buspirone 10 mg tablet TAKE 1 TABLET BY MOUTH EVERY 12 HOURS NEEDED active Not Available Not Available No t Available warfarin 5 mg tablet TAKE 1 TABLET BY MOUTH DAILY ALONG WITH 2MG TABLET TO EQUAL TOTAL DOSE OF 7MG DAILY active Not Available Not Available No t Available docusate sodium 100 mg capsule TAKE 1 CAPSULE BY MOUTH TWICE DAILY NEEDED active Not Available Not Available No t Available gabapentin 300 mg capsule TAKE 1 CAPSULE BY MOUTH EVERY 12 HOURS DIRECTED active Not Available Not Available No t Available ergocalcife rol (vitamin D2) 1,250 mcg (50,000 unit) capsule TAKE 1 CAPSULE BY MOUTH EVERY WEEK DIRECTED active Not Available Not Available No t Available warfarin 1 mg tablet TAKE 2 TO 3 TABLETS BY MOUTH DIRECTED PER INR RESULT active Not Available Not Available No t Available polyethylen e glycol 3350 17 gram/dose oral powder MIX 17 GRAMS IN LIQUID AND DRINK BY MOUTH DAILY FOR 30 DAYS DIRECTED active Not Available Not Available No t Available docusate sodium 04/08 completed Not Available Not Available Not Available atorvastati n 04/08 completed Not Available Not Available Not Available calcium 04/08 completed Not Available Not Available Not Available citalopram 04/08 completed Not Available Not Available Not Available warfarin 04/08 completed Not Available Not Available Not Available bumetanide active Not Available Not Av ailable Not Available amitriptyli ne 04/08 completed Not Available Not Available Not Available alprazolam 04/08 completed Not Available Not Available Not Available metoprolol succinate 04/08 completed Not Available Not Available Not Available buspirone 04/08 completed Not Available Not Available Not Available Vitamin D3 active Not Available Not Av ailable Not Available mirtazapine 04/08 completed Not Available Not Available Not Available gabapentin 04/08 completed Not Available Not Available Not Available Multi-V active Not Available Not Avail able Not Available Asprin Ec Low Dose active Not Available Not Available Not Available calcium 600 mg (as carbonate)- vitamin D3 10 mcg (400 unit) tablet TAKE 1 TABLET BY MOUTH TWICE DAILY DIRECTED active Not Available Not Available No t Available polyethylen e glycol (bulk) active Not Available Not Available Not Available Jardiance 10 mg tablet TAKE 1 TABLET BY MOUTH EVERY DAY active Not Available Not Available No t Available Jardiance 04/08 completed Not Available Not Available Not Available Entresto 24 mg-26 mg tablet TAKE 1 TABLET BY MOUTH TWICE DAILY active Not Available Not Available No t Available Entresto 04/08 completed Not Available Not Available Not Available Vitals Date Recorded Body height Body mass index (BMI) Body weight Systolic And Diastolic Provider Name and Address Organization Details Last Updated DateTime 10/08/2022 160.02 cm 27.8 kg/m2 69367 g 132/80 mm[Hg] [facility] 10/08/2022 15:28:57 Date Recorded Body height Body mass index (BMI) Body weight Systolic And Diastolic Provider Name and Address Organization Details Last Updated DateTime 03/04/2022 160.02 cm 30.5 kg/m2 33984.89 g 101/70 mm[Hg] [facility] 03/04/2022 14:10:36 Date Recorded Body height Body mass index (BMI) Body weight Systolic And Diastolic Provider Name and Address Organization Details Last Updated DateTime 04/08/2022 160.02 cm 29.4 kg/m2 83284.33 g 133/86 mm[Hg] [facility] 04/08/2022 15:30:12 Date Recorded Body height Body mass index (BMI) Body weight Systolic And Diastolic Provider Name and Address Organization Details Last Updated DateTime 04/17/2023 160.02 cm 28.9 kg/m2 43481.99 g 92/61 mm[Hg] Rima [facility] 04/17/2023 15:13:21 Social History Question Answer Notes LastModified by Organizat ion Details LastModified Time Tobacco Smoking Status Never Smoker Rimacindy Sherjuan [facility] 04/17/2023 15:14:13 Are You Blind Or Do You Have Difficulty Seeing? Yes Information n ot available 04/17/2023 What Is Your Level Of Caffeine Consumption? Occasional Information not available 04/17/2023 In The 14 Days Before Symptom Onset, Have You Had Close Contact With A Laboratory-confirm ed COVID-19 While That Case Was Ill? No Information n ot available 04/17/2023 In The 14 Days Before Symptom Onset, Have You Had Close Contact With A Person Who Is Under Investigation For COVID-19 While That Person Was Ill? No Information not available 04/17/2023 Have You Been To An Area Known To Be High Risk For COVID-19? No Information not available 04/17/2023 Are You Deaf Or Do You Have Serious Difficulty Hearing? No Information not available 04/17/2023 What Type Of Diet Are You Following? CARDIAC Information n ot available 04/17/2023 What Is The Highest Grade Or Level Of School You Have Completed Or The Highest Degree You Have Received? [id number] Information not available 04/17/2023 Are There Any Guns Present In Your Home? No Information not available 04/17/2023 Do You Use Protection During Sex? No Information not available 04/17/2023 Do You Use Your Seat Belt Or Car Seat Routinely? Yes Information not available 04/17/2023 Do You Have Smoke And Carbon Monoxide Detectors In Your Home? Yes Information not available 04/17/2023 How Much Tobacco Do You Smoke? No Information not available 04/17/2023 Do You Use Sunscreen Routinely? No Information not available 04/17/2023 Has Tobacco Cessation Counseling Been Provided? No Information not available 04/17/2023 Have You Used IV Drugs? No Information not available 04/17/2023 Sex: Unknown Functional Status Question Answer Note LastModified by Organizat ion Details LastModified Time Do you use any illicit or recreational drugs? No Information not available 03/04/2022 Do you or have you ever used any other forms of tobacco or nicotine? No Information not available 04/17/2023 What is your level of alcohol consumption? None Information not available 03/04/2022 Are you able to walk independently without assistance or assistive devices? YESWOREST Information not available 04/17/2023 What is your exercise level? Moderate Information not available 04/17/2023 Mental Status Question Answer Note LastModified by Organization D etails LastModified Time Do you feel stressed (tense, restless, nervous, or anxious, or unable to sleep at night)? [id number] Information not available 04/17/2023 Family History Relationship Description Onset Age of this Age Resolved Age Notes LastModified by Organization Details LastModified Time Paternal Aunt Malignant neoplasm of breast [email or web address] Not available 2021 14:19:11 Brother Seizure disorder [email or web address] Not available 2022 15:03:37 Medical History Condition Response Other N Blood Transfusion N Dermatologic Disorders N Gestational Diabetes N Anxiety Disorder Y Autoimmune disease N Arthritis N Polyps N Infertility N Acid Reflux (GERD) N Cancer Y Varicosities N Stroke N Neurologic/Epilepsy N Fibromyalgia N Headaches N Kidney Disease N Heart Problems Y Kidney or Bladder Problems N Eating Disorder N Art (IVF or FET) N Hepatitis/Liver Disease N No Past Medical History N Urinary Tract Infection N Asthma N Trauma/Violence N Thrombophilias N Allergies (Food, seasonal, environmental ) N Breast Cancer Y Drug/Latex Allergies/Reactions N Lung Disease N Defects or Inherited Disease N Breast Problem N Hematologic disorders N Anesthesia Complications N History of STI N Deep Vein Thrombosis N Polycystic ovary syndrome N History of abnormal pap N Endometriosis N High Cholesterol Y Thyroid Problems N GI Problems N Anemia N Psychiatric Illness N Ovarian Cancer N Diabetes N Pulmonary (TB, Asthma) N Eczema N Abuse/Domestic Violence N Depression/ depression N Heart Disease Y Pre-Eclampsia N Hypertension Y Osteoporosis N Gynecological History Statement/Question Response Date of Last Mammogram 02/09/2022 N On BCP's at Conception? N STIs/STDs N HPV Vaccine N Current Control Method None Date of Last Colonoscopy Most Recent Bone Density Sexually Active? N Age of first menstrual cycle 14 Date of Last Pap Smear Sexual Problems? N N Obstetrics History GPAL:G 3 P 3 0 0 3 Type Value Full Term 3 Living 3 Total 3 Past Encounters Encounter ID Performer Location Encounter Start Date Encounter Closed Date Diagnosis/Indication Diagnosis SNOMED-CT Code Diagnosis ICD10 Code Diagnosis IMO Codes Diagnosis Note [id number] Nicki Serrato MD [place] [address],[facility] [place] [address] 03/04/2022 13:45:58 03/06/2022 16:00:59 Gynecologic examination 61494776 Z01.419 Z11.51 History of malignant neoplasm of breast 000710927 Z85.3 left, 2013, lumpectomy and radiation Female uri nary stress incontinence 44325270 N39.3 Anticoagulant therapy 18 2894329 Z79.01 [id number] MD Rosy Santana [address] [address] 04/08/2022 15:07:17 04/09/2022 16:22:09 Low grade squamous intraepithelial lesion on cervical Papanicolaou smear 1892955786 9105 R87.612 [id number] Nicki Serrato MD [place] [address] [address] 10/08/2022 15:06:28 10/08/2022 16:41:55 Cervical intraepithelial neoplasia grade 1 210443823 N87.0 Menopausal flushing 1983 50820 N95.1 [id number] KIRILL Lam [place] [address] [address] 04/17/2023 15:03:23 04/17/2023 16:30:41 Gynecologic examination 24146718 Z01.419 Z11.51 WWEpostmen opausalrep eat pap updatedSTI testing declineden couraged to schedule mammogramh as cologuard at homeUTD with PCPwill update pt with pap result when available and discuss f/u instructio ns Take Calcium with Vitamin D daily.Do monthly self breast exams.It is advised to get annual flu shot in the fall and she could obtain at [facility] or [facility] care clinic. If you haven't received the Tdap vaccine in the last 10 years you should obtain one as well.Have mammogram yearly, bone density every 2-3 years and colonoscop y every 5-10 years depending on findings and history.En michael in daily exercise of low impact aerobic exercise 45-60 minutes 4-5 times weekly. Avoid tobacco and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
--- OUTSIDE RECORDS SUMMARY | 2025-04-03 20:25 | XMS_ITS | Encounter Summary ---
Author Organization [facility] Address [address] [place] [address] Care Team Providers Care [facility] Att[facility] Name Role Phone Sabino Powell MD Unavailable [phone] Erich Hair Primary Care Provider Unavailab Reason for Visit * Reason Onset Date Comments Results 01/23/2024 Encounter Details Date Type Department Care Team (Late st Contact Info) Description 01/23/2024 Telephone [facility] - Cardiology [address] [address] Rachel Penaloza MD [id number] [place] [address] Results Social History Tobacco Use Types Packs/Day Years [...] on file Legal 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 Gender Identity Not on file Sexual Orientation [...] encounter Miscellaneous Notes * Telephone Encounter - Diamond Eller - 01/23/2024 2:27 PM CDT Pt would like a phone call back with her most recent monitor results Pt can be reached at [phone] Ame documented in this encounter Plan of Treatment Upcoming Encounters Date Type Department Care Team (Late st Contact Info) Description 06/16/2025 4:00 PM STOPPER MAKER HELPER Office Visit [facility] - Cardiology [address] [facility] [place] [address] Christine Parnell MD [address] [place] [address] documented as of this encounter Visit Diagnoses Not on filedocumented in this encounter Care Teams [facility] Att[facility] Relationship Specialty Start Date End Date Erich Hair Update Information PCP - General 01/09/22 Sabino Powell MD Treatment Supervisor Cardiovascular Disease 09/18/18 documented as of this encounter
--- OUTSIDE RECORDS SUMMARY | 2025-04-03 20:25 | XMS_ITS | Clinical Summary ---
Author Organization [facility] Address [address] [place] [address] Care Team Providers Care Automatic Winder Operator Name Role Phone Sabino Powell MD Unavailable [phone] Erich Hair Primary Care Provider Unavailab le Source Comments [facility],non-owned Affiliates and Associated Physician Practices is amultiple site organization consisting of ambulatory clinics and hospital sitesin [place], [place], [place] and [place]. This disclosure is being madepursuant to the Care Everywhere program and may not contain all information available regarding this patient. Last updated 18.[facility] Allergies Active Allergy Reactions Criticality Noted Date Comments Spironolactone Rash Medium 10/07/2018 Medications * Be aware that medications may not be up to date on this document. Alwaysverify current medications with the patient. atorvastatin (LIPITOR) 40 MG tablet Take 1 (one) tablet by mouth once daily 9 Active citalopram (CELEXA) 40 MG tablet Take 1 (one) tablet by mouth at bedtime 8 Active DOK 100 MG capsule Take 2 (two) capsules by mouth at bedtime 9 Active gabapentin (NEURONTIN) 300 MG capsule Take 1 (one) capsule by mouth at bedtime 9 Active mirtazapine (REMERON) 30 MG tablet Take 1 (one) tablet by mouth at bedtime 9 Active amitriptyline (ELAVIL) 25 MG tablet Take 1 (one) tablet by mouth at bedtime Active calcium carbonate - vitamin D (CALCIUM+D3) 600-800 MG-UNIT tablet Take 1 (one) tablet by mouth at bedtime Active multivitamin daily tablet Take 1 (one) tablet by mouth daily with food Active acetaminophen (TYLENOL) 325 MG tablet Take 2 (two) tablets by mouth every 6 hours as needed Maximum allowable Acetaminophen amount = 4 Grams (4000 mg) / 24 hours. 1 Active aspirin (ASPIRIN) 81 MG chew tablet Take 2 (two) tablets by mouth once daily 1 Active furosemide (LASIX) 40 MG tablet Take 1 (one) tablet by mouth once daily as needed (edema or weight gain) 30 tablet 1 1 Active potassium chloride ER (KLOR-CON 10) 10 MEQ tablet Take 2 (two) tablets by mouth once daily (With furosemide) for 30 day 60 tablet 1 Active warfarin (COUMADIN) 7.5 MG tablet Take 1 (one) tablet by mouth once daily 90 tablet 4 2 Active oxyBUTYnin CR 24hr (Ditropan-XL) 10 MG tablet Take 1 (one) tablet by mouth once daily Active sacubitril-sangeetha sartan (Entresto) 49-51 MG tablet Take 1 (one) tablet by mouth 2 times daily 180 tablet 3 4 Active metoprolol succinate XL 24hr (Toprol XL) 200 MG tablet Take 1 (one) tablet by mouth once daily 90 tablet 3 5 Active warfarin (Coumadin) 1 MG tablet Take 2 to 3 tablets by mouth as directed per INR result. 180 tablet 4 5 Active empagliflozin (Jardiance) 10 MG tablet Take 1 (one) tablet by mouth once daily 90 tablet 3 5 Active warfarin (Coumadin) 5 MG tablet TAKE 1 TABLET BY MOUTH DAILY ALONG WITH 2MG TABLET TO EQUAL TOTAL DOSE OF 7MG DAILY. 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 She remains volume up on exam despite increased diuretics at previous appointment. Plan to stop lasix and change to Torsemide 20mg BID. Continue Potassium Supplement, repeat BMP and Dig level in one week. If k and creatine WNL will resume Lisinopril. Pts HR remains elevated in clinic despite increased coreg, start Corlanor 2.5mg BID samples given. Plan to follow up in one week by phone. Daily weights and BP log. Continue Digoxin. Plan to resume aldactone at follow up in one month. Assessment & Plan (05/26/2019 12:18 PM MOVEMAN): Clip implantation procedure difficult secondary to very small orifice area. Therefore, was only able to implant one clip with 50% reduction of mitral regurgitation from 4+ to 2+. Echocardiogram from today continues to show up proximally 2+ MR (full report to follow), however reports an increase in mitral valve gradient. She had a 4 mm gradient at cessation of procedure but now a gradient as much higher. She does not appear to be markedly symptomatic from this standpoint, I. E. She does not appear to have symptomatic mitral stenosis. Therefore at this time, we have increased her carvedilol to 25 mg twice daily as well as increase her furosemide to 40 mg twice daily. We are trying to affect a decrease in her overall heart rate, as it was 97 today, as well as a 10 pound weight loss. We will follow-up with her in approximately one month to know the effect of these changes. She's been instructed to increase her physical activity as tolerated. She is also been given orders for lab work to be done on a weekly basis while on twice a day furosemide to assure no change in renal function or electrolyte balance. Localized soft tissue swelling 12/15/2018 Overview (12/15/2018): Of left neck Assessment & Plan (12/15/2018 3:24 PM CDT): Ultrasound of soft tissue swelling of left neck/clavile, lymph node. Bruit of left carotid artery 12/15/2018 Assessment & Plan (12/15/2018 3:25 PM CDT): Carotid duplex. NICM (nonischemic cardiomyopathy) 11/11/2018 Overview (11/22/2019): Last Assessment & Plan: Chronic Systolic Heart [id number] class II-III symptoms. Stable. Pt appears euvolemic [...] one month to further maximized GDMT. Await furhter recs for repeat ECHO and possible EP consult for ICD. Last Assessment & Plan: See chronic systolic congestive heart failure, above. Assessment & Plan (07/19/2019 12:05 PM CDT): Acute on Chronic Systolic Heart Failure. Continue Torsemide 20mg BID. Continue Potassium Supplement 40MEQ BID, repeat BMP and Dig level pending, pt had drawn at PCP office on Friday last week. Start Entresto 24/26mg today. Pts HR remains elevated in clinic despite increased coreg, and start of Corlanor 2.5mg BID, will increase to 5mg BID. Plan to follow up in one week by phone. Daily weights and BP log. Continue Digoxin. Plan to resume eplerenone in one week if K and Creatine are stable on follow up BMP after adding Entresto, ECHO and follow up in 2 months with Nicki or Dr. Oakes, to review and discuss potential need for ICD referral. Assessment & Plan (06/18/2019 2:54 PM MOVEMAN): Acute on Chronic Systolic Heart Failure. Plan to stop lasix and change to Torsemide 20mg BID. Continue Potassium Supplement, repeat BMP and Dig level in one week. If K and creatine WNL will resume Lisinopril 2.5 mg daily. Pts HR remains elevated in clinic despite increased coreg, start Corlanor 2.5mg BID samples given. Plan to follow up in one week by phone. Daily weights and BP log. Continue Digoxin. Plan to resume aldactone at follow up in one month. And, push Corlanor at the same time. Assessment & Plan (02/25/2019 9:41 AM CDT): Currently managed with carvedilol, digoxin, lisinopril, and furosemide. At this point, cannot tolerate increased dosages of carvedilol or lisinopril. Will change furosemide to BID administration given continued volume overload state in preparation for MitraClip Assessment & Plan (12/15/2018 3:21 PM CDT): Chronic Systolic Heart [id number] class II-III symptoms. Stable. Pt appears euvolemic [...] one month to further maximized GDMT. Await lana martinez for repeat ECHO and possible EP consult for ICD. Chronic systolic congestive heart failure 2018 Overview (11/22/2019): Last Assessment & Plan: Patient continues to follow with cardiology for management, but findings today suggest increased diastolic failure. No pedal edema, but findings suspicious for abdominal sequestration. Obtain imaging studies as ordered. ZIMMERMAN (dyspnea on exertion) 11/11/2018 Decreased exercise tolerance 11/11/2018 Chronic night sweats 05/13/2018 Overview (11/22/2019): Last Assessment & Plan: Likely multifactorial, certainly anastrozole plays a part [...] with plan. Malignant neoplasm of breast 09/05/2017 Overview (11/22/2019): Last Assessment & Plan: Care continues under guidance of Dr. Pedersen, with yearly follow-up with her breast surgeon. Continues on anastrozole. Generalized anxiety disorder 01/23/2017 Overview (11/22/2019): Transitioned From: Anxiety Last Assessment & Plan: Stable on current dosing of citalopram, alprazolam, amitriptyline and mirtazapine in addition to bupropion. No treatment change at this time. Insomnia 01/23/2017 Overview (11/22/2019): Last Assessment & Plan: Continued use of mirtazapine, amitriptyline and alprazolam [...] recurrent major depressive disor beatrice 01/23/2017 Overview (11/22/2019): Transitioned From: Depression Last Assessment & Plan: See generalized anxiety disorder, above. BMI 30.0-30.9,adult 05/22/2016 Erythrocytosis 02/20/2016 Overview (11/22/2019): Last Assessment & Plan: Check CBC-likely in part related to chronic smoking. Nephrolithiasis 11/01/2015 Sensory peripheral neuropathy 06/22/2015 Overview (11/22/2019): Last Assessment & Plan: Stable at this time on current dosing of gabapentin with some relief of symptoms. No change to present therapy. Hyperlipidemia 04/14/2012 Overview (11/22/2019): Last Assessment & Plan: Tolerating a atorvastatin, will obtain fasting lipid profile at her earliest convenience-not fasting today. Assessment & Plan (12/15/2018 3:16 PM CDT): Continue Atorvastatin. Essential hypertension 03/02/2012 Overview (11/22/2019): Last Assessment & Plan: Well controlled. 1. Medication: continue current medication regimen unchanged, encouraged home monitoring, call for persistent elevations at or above 130/85. 2. Regular aerobic exercise -to have patient check with cardiology regarding indications for cardiopulmonary rehab. 3. Recheck in 6 months, sooner should new symptoms or problems arise. Resolved Problems Problem Noted Date Diagnosed Date Resolved Date Pre-op evaluation 06/16/2020 06/21/2020 Status post pericardiocentesis 04/10/2019 11/22/2019 Gastroesophageal reflux dise ase with esophagitis 04/09/2019 01/01/2024 Mitral valve insufficiency 11/11/2018 0 06/21/2020 Assessment & Plan (07/19/2019 12:04 PM CDT): Sp one clip with 50% reduction in MR from 4+ to 2+. She remains volume up on exam despite increased change in diuretics at previous appointment. Continue Torsemide 20mg BID. Continue Potassium Supplement, repeat BMP and Dig level in one week. Add Entresto 24/26mg BID today and increase Corlanor to 5mg BID. BMP and add Eplerenone if able. Plan to follow up in one week by phone. Daily weights and BP log. Continue Digoxin. BMP in one week, ECHO and follow up in 2 months. Assessment & Plan (02/25/2019 9:38 AM CDT): Since we first evaluated her for mitral [...] without proven benefit. She doesn't qualify for CORPORATE ETHICS OFFICER therapy. She can't tolerate higher doses of [...] have to consider LVAD / Transplant evaluation. Assessment & Plan (12/15/2018 3:21 PM CDT): Stable, no changes. PT continues to endorse NYHA class II-III symptoms, per valve team, good candidate for Mitral Valve clip, maximize heart failure regimen and await further recs from Dr. Oakes and his team. Constipation 08/24/2012 12/20/2019 Encounters Date Type Department Care Team Description 03/16/2025 Results Follow-Up [facility] - Cardiology [address], [place] [address] [place] [address] Mason Paige RN 03/03/2025 Telephone [facility] - Centralized Scheduling [address] [place] [address] Jaqueline Valente Question (warfarin (Coumadin) 5 MG tablet) 03/02/2025 Orders Only [facility] - Cardiology [address] [place] [address], [address] [address] Rachel Penaloza MD 02/02/2025 Telephone [facility] Physician [address], [address] [address] Christine Parnell MD 01/28/2025 Telephone [facility] Physician [address], [address] [address] Ella Smith, FINANCIAL CONTROLLER-EYEWEAR MANUFACTURING TECH Results 01/27/2025 [facility] Physician [address], [address] [address] Ella Smith, FINANCIAL CONTROLLER-EYEWEAR MANUFACTURING TECH Results; Question 01/26/2025 Orders Only [facility] Physician [address], [address] [address] Rachel Penaloza MD from Last 3 Months Immunizations Immunization Administration Dates Next Due INFLUENZA VACCINE, QUADR. (F LUZONE; FLULAVAL; FLUARIX; AFLURIA QUADRIVALENT; 6MO+), 0.5 ML (IIV4) 01/22/2023,02/11/2022,05/01/2021,2019,02/20/2016 Pneumococcal Pcv13 Conj 02/02/2020 Social History Tobacco Use Types Packs/Day Years Used Date Smoking Tobacco: Former Cigarettes 0.3 20 0 09/01/1998 - 09/01/2018 Smokeless Tobacco: Never Tobacco Cessation:Counseling Given: Not Answered Alcohol Use Standard Drinks/Week Comments Never 0 [...] on file Legal Sex Female 7:42 PM MOVEMAN Gender Identity Not on file Sexual Orientation Not on file Last Filed Vital Signs Vital Sign Reading Time Taken Comments Blood Pressure 128/78 11/18/2024 10:27 AM CDT Pulse 89 11/18/2024 10:27 AM CDT Temperature 36.1 C (97 F) 01/11/2022 1:11 PM CDT Respiratory Rate 16 07/20/2020 7:46 AM MOVEMAN Oxygen Saturation 98% 11/18/2024 10:27 AM CDT Inhaled Oxygen Concentration 30% 06/16/2020 1 1:24 PM MOVEMAN Weight 70.3 kg (155 lb) 11/18/2024 10:27 AM CDT Height 160 cm (5' 3) 11/18/2024 10:27 AM CDT Body Mass Index 27.46 11/18/2024 10:27 AM CDT Plan of Treatment Upcoming Encounters Date Type Department Care Team (Late st Contact Info) Description 06/16/2025 4:00 PM MOVEMAN Office Visit [facility] - Cardiology [address] [facility] [address] [place] [address] Christine Parnell MD [address] [place] [address] Health Maintenance Due Date Last Done Comments COLOGUARD (AGES 45-75) - COLON CA SCREENING 1961 COLON MONITORING 1961 COLONOSCOPY - COLON CA SCREENING 1961 CT COLONOGRAPHY - COLON CA SCREENING 1961 Colorectal Cancer Screening 1961 FIT - COLON CA SCREENING 1961 FLEX SIG - COLON CA SCREENING 1961 HIV SCREENING 1976 DTAP/TDAP/TD VACCINES (1 - Tdap) 1980 PAP with HPV 1991 Respiratory Syncytial Virus (RSV) Vaccine Pt: or over 60 yrs (1 - Risk 50-74 years 1-dose series) 2011 ZOSTER VACCINE (1 of 2) 2011 MAMMOGRAM 06/27/2019 06/27/2017, 06/12, 11/19/2013 PNEUMOCOCCAL VACCINE 50+ (2 of 2 - PPSV23, PCV20, or PCV21) 03/29/2020 02/02/2020 DEPRESSION SCREENING 05/12/2024 COVID-19 VACCINE ( season) 2025 05/30/2021, 09/12/2020, 08/18/2020 INFLUENZA VACCINE (#1) 2025 4, 01/22/2023, 02/11/2022, Additional history exists Cervical Cancer Screening 04/17/2026 PAP SMEAR 04/17/2026 04/17/2023, 1211/2022, 10/08/2022, Additional history exists SCREENING FOR DIABETES 07/16/2027 5, 03/25/2024, 07/20/2020, Additional history exists HEPATITIS C SCREENING Completed 02/02/2020 HEPATITIS B VACCINE Aged Out No longe r eligible based on patient's age to complete this topic HIB VACCINE Aged Out No longer eligi ble based on patient's age to complete this topic HPV VACCINE Aged Out No longer eligi ble based on patient's age to complete this topic MENINGOCOCCAL (Group B) VACCINE SHARED DECISION-MAKING Aged Out No longer eligible based on patient's age to complete this topic MENINGOCOCCAL GROUPS A/C/Y/W VACCINE Aged Out No longer eligible based on patient's age to complete this topic Medical Devices Implanted Type Area Svp Chief Marketing Officer Device Identifier Shelf Expiration Date Model / Serial / Lot Sys Delivry Mitraclp Implanted:Qty: 1 on 03/23/2019 by Wade Oakes MD at [facility] Clip Left: Mitral Valve [employer] 11/16/2019 [id number] / / [id number] Valve Mtrl 27mm 22.5mm Mstr 85d [facility] Ring - [id number] Implanted:Qty: 1 on 06/16/2020 by Enrique Pineda MD at [facility] N/A: Mitral Valve [employer] 07/05/2021 [id number] / [id number] / Procedures Procedure Name Priority Date/Time Associated Diagnosis Comments PT-INR 03/02/2025 1:34 PM CDT PT-INR Routine 02/01/2025 12:57 PM CDT S/P mitral valve clip implantation On warfarin therapy PT-INR 01/26/2025 12:27 PM CDT COMPREHENSIVE METABOLIC PANEL Routine 07/15/2024 12:46 PM MOVEMAN Chronic combined systolic and diastolic congestive heart failure from Last 3 Months or Most Recently Relevant to Health Maintenance Results * (ABNORMAL) PT-INR (03/02/2025 1:34 PM CDT) Only the most recent of3 resultswithin the time period is included. INR 3.8(H) [facility] Comment: Reference Range 0.9-1.1 Moderate-intensity Warfarin Therapy 2.0-3.0 Higher-intensity Warfarin Therapy 3.0-4.0 PT 37.3(H) 9.0 - 11.5 sec [facility] Comment: For additional information, please refer to http://education.EnglishCentral/faq/RZE144 (This link is being provided for informational/ educational purposes only.) Test Performed at: [id number] [address] JUANA GARCIA MD 03/02/2025 1:34 PM CDT 03/02/2025 1:35 PM CDT us Rachel Penaloza MD LAB - COAGULATION ORDERABLES Final Result [address] [address] * COMPREHENSIVE METABOLIC PANEL (07/15/2024 12:46 PM MOVEMAN) Glucose 82 65 - 99 mg/dL [facility] Comment: Fasting reference interval BUN 14 7 - 25 mg/dL [facility] Creatinine 0.83 0.50 - 1.05 mg/dL [facility] eGFR by Cystatin C 79 > OR = 60 mL/min/1. 73m2 [facility] BUN/Creatinine Ratio SEE NOTE: (calc) [facility] Comment: Not Reported: BUN and Creatinine are within reference range. Sodium 141 135 - 146 mmol/L [facility] Potassium 4.6 3.5 - 5.3 mmol/L [facility] Chloride 109 98 - 110 mmol/L [facility] CO2 24 20 - 32 mmol/L [facility] Calcium 9.3 8.6 - 10.4 mg/dL [facility] Protein Total 6.5 6.1 - 8.1 g/dL [facility] Albumin 4.4 3.6 - 5.1 g/dL [facility] Globulin Total 2.1 1.9 - 3.7 g/dL (calc) [facility] Albumin/Globulin Ratio 2.1 1.0 - 2.5 (calc) [facility] Bilirubin Total 0.4 0.2 - 1.2 mg/dL [facility] Alkaline Phosphatase 90 37 - 153 U/L [facility] AST 28 10 - 35 U/L [facility] ALT 29 6 - 29 U/L [facility] Comment: Test Performed at: [facility] [id number] [facility] [place] [address] JUANA GARCIA MD Blood BLOOD SPECIMEN / Unknown 07/15/2024 12:46 PM MOVEMAN 07/15/2024 12:48 PM MOVEMAN Jerome Bonner MD LAB - CHEMISTRY ORDERABLES Lizzy comer Result [facility] [id number] [place] [address] from Last 3 Months or Most Recently Relevant to Health Maintenance Insurance [facility] [address] [facility] Advance Directives * Full Code (Latest Code Status on File) Date Activated Date Inactivated Comments 07/18/2020 11:06 AM 07/20/2020 11:06 AM * Full Code Date Activated Date Inactivated Comments 06/16/2020 11:51 AM 06/21/2020 12:52 PM * Full Code Date Activated Date Inactivated Comments 04/21/2020 10:51 AM 04/21/2020 4:52 PM * Full Code Date Activated Date Inactivated Comments 03/25/2019 8:46 AM 03/27/2019 5:37 PM * Full Code Date Activated Date Inactivated Comments 03/23/2019 1:02 PM 03/25/2019 8:46 AM Care Teams Automatic Winder Operator Relationship Specialty Start Date End Date Erich Hair Update Information PCP - General 01/09/22 Sabino Powell MD Orthotist Or Prosthetist Cardiovascular Disease 09/18/18
--- OUTSIDE RECORDS SUMMARY | 2025-04-03 20:25 | XMS_ITS | Encounter Summary ---
Author Organization [facility] Address [address] [place] [address] Care Team Providers Care Gyro Compass Tester Name Role Phone Sabino Powell MD Unavailable [phone] Erich Hair Primary Care Provider Unavailab le Reason for Visit * Reason Onset Date Comments MEDICATION REFILL 10/27/2024 Encounter Details Date Type Department Care Team (Late st Contact Info) Description 10/27/2024 Refill [facility] - Cardiology [address] [facility] [address] [place] [phone] Noris Wray MD MEDICATION REFILL Social History Tobacco Use Types Packs/Day Years [...] on file Legal Sex Female 7:42 PM METAL FABRICATING SHOP HELPER Gender Identity Not on file Sexual Orientation Not on file documented as of this encounter Functional Status * Is person deaf or have serious hearing difficulty? Answer Date of Assessment Author No 07/19/2020 4:46 PM METAL FABRICATING SHOP HELPER Concepcion Thayer, RN * Is person blind or have [...] st Contact Info) Description 06/16/2025 4:00 PM METAL FABRICATING SHOP HELPER Office Visit [facility] - Cardiology [address] [facility] [facility] [address] [place] [address] Christine Parnell MD [address] [place] [address] documented as of this encounter Visit Diagnoses Not on filedocumented in this encounter Care Teams Gyro Compass Tester Relationship Specialty Start Date End Date Erich Hair Update Information PCP - General 01/09/22 Sabino Powell MD Auditing Coder Cardiovascular Disease 09/18/18 documented as of this encounter
[2025-04-03 20:28] VITALS: BP 124/89; PULSE 85; RESP 18; TEMP 36.4; O2SAT 100
--- NOTE | 2025-04-03 21:44 | ED.LOWEXIN ---
HPI - Extremity Injury (Lower) General Chief Complaint: Extremity Injury, Lower Stated Complaint: L foot injury, swelling Time Seen by Provider: 04/03/25 21:15 History of Present Illness HPI Narrative: 64-year-old female presenting to the emergency department after her dog ran over her left foot. She does take warfarin and gets her levels checked frequently. She is in normal range according to the patient and does not have any adjustments needed or changes answer warfarin dose. Came in today as she had a 110 lb. pit bull step on her left foot. Denies any significant pain but does have some bruising that is slowly starting to go down since arrival to the ED. Able to ambulate without any assistance. Was otherwise in her normal state of health. Did not take anything for pain control or swelling control prior to arrival. Related Data Home Medications ?Medication ?Instructions ?Recorded ?Confirmed ?Last Taken ?Type alprazolam 0.25 mg tablet 0.25 mg PO TID PRN Anxiety 01/02/20 11/24/21 Unknown History amitriptyline 25 mg tablet 25 mg PO HS sleep 01/02/20 11/24/21 Unknown History atorvastatin 40 mg tablet 40 mg PO DAILY hypercholesterolemia 01/02/20 11/24/21 Unknown History bupropion HCl 150 mg 24 hr tablet, 150 mg PO DAILY depression 01/02/20 11/24/21 Unknown History extended release citalopram 40 mg tablet 40 mg PO HS sleep 01/02/20 11/24/21 Unknown History docusate sodium 100 mg capsule 100 mg PO DAILY 01/02/20 11/24/21 Unknown History (DOK) gabapentin 300 mg capsule 300 mg PO DAILY 01/02/20 11/24/21 Unknown History lisinopril 5 mg tablet 5 mg PO HS HTN 01/02/20 11/24/21 Unknown History mirtazapine 30 mg tablet 30 mg PO HS 01/02/20 11/24/21 Unknown History potassium chloride 10 mEq 40 meq PO BID 01/02/20 11/24/21 Unknown History tablet,extended release Allergies Allergy/AdvReac Type Severity Reaction Status Date / Time spironolactone AdvReac Mild Rash Verified 04/03/25 20:24 Review of Systems Review of Systems: As reviewed above in HPI [facility] Past Medical History Medical History Nonischemic cardiomyopathy noted on trans esophageal echocardiogram August 2018 with severe mitral valve regurgitation EF of 25% Kidney stones 2016 Cancer of left breast 2014treated with radiation therapy Hypercholesterolemia Hypertension Surgical History Surgical History History of cardiac catheterization with no significant coronary artery disease noted August 2018 Status post left breast lumpectomy S/P mitral valve clip implantation Family History Family History Mother Cerebrovascular accident Father AICD (automatic cardioverter/defibrillator) present RADHA (obstructive sleep apnea) Chronic obstructive pulmonary disease Social History Social History Social History: The patient lives with her fiance and her 24-year-old daughter who has Down syndrome. 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 She used to smoke a 3rd of a pack of cigarettes per day but quit smoking in August of 2018. She denies any alcohol use or illicit substance use. Smoking packs per day: 0.5 Smoking cigarettes per day: 10.0 Years smoked: 22 Smoking pack-years: 11.00 Smoking status: Former smoker Tobacco type: cigarettes Second hand tobacco smoke exposure: No Smoking end date: 09/01/18 Alcohol intake: never Substance use: never Gender identity (if verbalized by the patient): Female Spiritual care concerns: No Exam Narrative: GENERAL: [Well-appearing, well-nourished, and in no acute distress.] HEAD: [Normocephalic, atraumatic.] EYES: [PERRLA and EOMI.] ENT: Nares clear, no rhinorrhea or epistaxis. Mucous membranes moist. NECK: Supple. CHEST: [Clear to auscultation. No respiratory distress.] HEART: 2+ dorsalis pedis and posterior tibialis pulse. Warm extremity. ABDOMEN: [Soft, nondistended], [nontender], [No rigidity or guarding] EXTREMITIES: Normal range of motion. Bruising to the top of the left foot that appears to be well contained, no signs of infection or active bleeding. Minimally tender to palpation but no restricted range of motion and able to bear weight and ambulate without difficulty. Good capillary refill of each digit. Pulses normal, sensation normal. SKIN: Warm, dry, no rash. NEURO: [No focal deficits]. Alert and oriented [x3.] PSYCH: [Normal mood and affect.] Course Vital Signs Vital signs: Vital Signs Temperature 36.4 C 04/03/25 20:28 Pulse Rate 85 04/03/25 20:28 Respiratory Rate 18 04/03/25 20:28 Blood Pressure 124/89 04/03/25 20:28 Pulse Oximetry 100 04/03/25 20:28 Oxygen Delivery Room Air 04/03/25 20:28 Temperature 36.4 C 04/03/25 20:28 Pulse Rate 85 04/03/25 20:28 Respiratory Rate 18 04/03/25 20:28 Blood Pressure 124/89 04/03/25 20:28 Pulse Oximetry 100 04/03/25 20:28 Oxygen Delivery Room Air 04/03/25 20:28 MDM - Extremity Injury (Lower) MDM Narrative Medical decision making narrative: 64-year-old female presenting to the emergency department after her dog ran over her left foot. She does take warfarin and gets her levels checked frequently. She is in normal range according to the patient and does not have any adjustments needed or changes answer warfarin dose. Came in today as she had a 110 lb. pit bull step on her left foot. Denies any significant pain but does have some bruising that is slowly starting to go down since arrival to the ED. Able to ambulate without any assistance. Was otherwise in her normal state of health. Did not take anything for pain control or swelling control prior to arrival. Normal range of motion. Bruising to the top of the left foot that appears to be well contained, no signs of infection or active bleeding. Minimally tender to palpation but no restricted range of motion and able to bear weight and ambulate without difficulty. Good capillary refill of each digit. Pulses normal, sensation normal. she has normal vital signs and no significant signs of injury Aside from the bruising which is attributed to her anticoagulation with warfarin. X-rays obtained independently reviewed. I do not appreciate any fractures or dislocations in this area. There are no plantar surface ecchymoses or any concern for Lisfranc injury. She is ambulatory without difficulty. Given Tylenol ibuprofen and Franklyn wrap for comfort and given return precautions and follow-up instructions. Medical Records Attestation: I reviewed the patient's medical records. Imaging Data Attestation: I personally reviewed and interpreted this imaging study as follows: My impression: No fractures or deformity. Discharge Plan Discharge Clinical Impression: Superficial bruising of foot Patient Disposition: Home Condition: Stable Instructions: Antibiotic Form, Foot Contusion (ED) Additional Instructions: X-rays do not show any broken bones or dislocations. Apply Franklyn wrap for comfort to keep the swelling and pain controlled. Take ibuprofen 600 mg every 8 hours, Tylenol 650 mg every 6-8 hours for pain and swelling control. Return with any emergencies, inability to ambulate, worsening pain or any other issues. Follow-up with regular care provider Otherwise. Patient Language: Czech Prescriptions: No Action atorvastatin 40 mg tablet 40 mg PO DAILY citalopram 40 mg tablet 40 mg PO HS alprazolam 0.25 mg tablet 0.25 mg PO TID PRN (Reason: Anxiety) amitriptyline 25 mg tablet 25 mg PO HS gabapentin 300 mg capsule 300 mg PO DAILY lisinopril 5 mg tablet 5 mg PO HS bupropion HCl 150 mg tablet extended release 24 hr 150 mg PO DAILY potassium chloride 10 mEq tablet extended release 40 meq PO BID docusate sodium [DOK] 100 mg capsule 100 mg PO DAILY mirtazapine 30 mg tablet 30 mg PO HS amiodarone [Pacerone] 200 mg Tablet 200 mg PO DAILY@0800 Qty: 30 0RF metoprolol succinate [Toprol XL] 25 mg Tablet Extended Release 24 Hr 25 mg PO QAM Qty: 30 0RF bumetanide 1 mg tablet 1 mg PO BID Qty: 60 0RF nitrofurantoin monohyd/m-cryst [Macrobid] 100 mg capsule 100 mg PO Q12H 5 Days Qty: 10 0RF Rx Instructions: must administer with a meal/food phenazopyridine [Pyridium] 200 mg tablet 200 mg PO TID Qty: 6 0RF Follow-up/Referrals: Reginaldo,MD Erich [Primary Care Provider, Unknown] Time of Disposition: 21:49
[2025-04-03] MEDS: ACETAMINOPHEN 325 MG TABLET 650 MG PO (21:55)
[2025-04-03] MEDS: IBUPROFEN 600 MG TABLET PO (21:55)
== END 2025-04-03 22:00 | disposition home or self-care (01) ==
PROVIDERS: Emergency Provider Student in an Organized Health Care Education/Training Program; PCP Family Medicine
DX: S90.32XA Contusion of left foot, initial encounter (principal); I42.8 Other cardiomyopathies; I10 Essential (primary) hypertension; E78.00 Pure hypercholesterolemia, unspecified; Z87.442 Personal history of urinary calculi; Z85.3 Personal history of malignant neoplasm of breast; Z92.3 Personal history of irradiation; Z87.891 Personal history of nicotine dependence; Z79.01 Long term (current) use of anticoagulants; Z79.899 Other long term (current) drug therapy; W54.1XXA Struck by dog, initial encounter
CPT/HCPCS: 73630; 99283; A9270